=== PATIENT | female | born 1995 | race Caucasian/White ===

== ENCOUNTER 2017-12-29 22:18 | Emergency (ER) | payer SELFPAY ==
[~2017-12-29] VITALS: Ht 157.5 cm; Wt 56.7 kg
[~2017-12-29 22:18] MED LIST: ACET-2267 PO; PREN-53 PO
[2017-12-29] MEDS ORDERED: NS IV 1000 ML 1,000 ML IV SCH (22:23)
--- OUTSIDE RECORDS SUMMARY | 2017-12-29 22:23 | XMS REPORT | Continuity of Care Document ---
Author Author [facility] Address Unknown Phone Unavailable Allergies Active Description Code Type Severity Reaction Onset Reported/Identified Relationship to Patient Clinical Status Yes No Known Drug Allergies [id number] Drug Allergy Unknown N/A 01/01/2016 Medications There is no data. Problems Date Dx Coded Attending Type Code Diagnosis Diagnosed By 06/26/2014 ANABELA SAMAYOA APRN N V03.89 MENINGOCOCCAL DX 01/01/2016 REGISTAWANDA Leon WHEAT CLEANER Ot O99.611 DISEASES OF THE DGSTV SYS COMP 01/01/2016 REGIS, TAWANDA WHEAT CLEANER Ot R11.0 NAUSEA 01/01/2016 REGISTAWANDA Leon WHEAT CLEANER Ot Z3A.10 10 WEEKS GESTATION OF 01/02/2016 REGISTAWANDA Leon WHEAT CLEANER Ot O99.611 DISEASES OF THE DGSTV SYS COMP 01/02/2016 REGIS, TAWANDA WHEAT CLEANER Ot R11.0 NAUSEA 01/02/2016 REGISTAWANDA Leon WHEAT CLEANER Ot Z3A.10 10 WEEKS GESTATION OF 03/02/2016 KOURTNEY RUBIO MD Ot M54.5 LOW BACK PAIN 03/02/2016 KOURTNEY RUBIO MD Ot O26.892 OT RELATED CONDITIONS, SECOND 03/02/2016 KOURTNEY RUBIO MD Ot Z3A.21 21 WEEKS GESTATION OF 03/02/2016 KOURTNEY RUBIO MD Ot M54.5 LOW BACK PAIN 03/02/2016 KOURTNEY RUBIO MD Ot O26.892 OTH RELATED CONDITIONS, SECOND 03/02/2016 KOURTNEY RUBIO MD Ot Z3A.21 21 WEEKS GESTATION OF Procedures There is no data. Results Test Result Range Complete urinalysis with reflex to culture - 03/01/16 23:40 Urine color determination YELLOW NRG Urine clarity determination CLEAR NRG Urine pH measurement by test strip 7 5-9 Specific gravity of urine by test strip 1.015 1.016- 1.022 Urine protein assay by test strip, semi-quantitative NEGATIVE NEGATIVE Urine glucose detection by automated test strip NEGATIVE NEGATIVE Erythrocytes detection in urine sediment by light microscopy NEGATIVE NEGATIVE Urine ketones detection by automated test strip NEGATIVE NEGATIVE Urine nitrite detection by test strip NEGATIVE NEGATIVE Urine total bilirubin detection by test strip NEGATIVE NEGATIVE Urine urobilinogen measurement by automated test strip (mass/volume) NORMAL NORMAL Urine leukocyte esterase detection by dipstick NEGATIVE NEGATIVE Automated urine sediment erythrocyte count by microscopy (number/high power field) NONE NRG Automated urine sediment leukocyte count by microscopy (number/high power field ) NONE NRG Bacteria detection in urine sediment by light microscopy TRACE NRG Squamous epithelial cells detection in urine sediment by light microscopy 2-5 NRG Crystals detection in urine sediment by light microscopy PRESENT NRG Casts detection in urine sediment by light microscopy NONE NRG Mucus detection in urine sediment by light microscopy NEGATIVE NRG Complete urinalysis with reflex to culture NO NRG Amorphous sediment detection in urine sediment by light microscopy MOD ANDRZEJ PHOSPHATE NRG Encounters ACCT No. Visit Date/Time Discharge Status Pt. Type Provider Facility Loc./Unit Complaint [id number] 06/26/2014 15:07:00 06/26/2014 23:59:59 [facility] Outpatient ADDISON ANABELA GARCIA APRN N [id number] 03/01/2016 23:32:00 03/02/2016 00:44:00 DIS Emergency KOURTNEY RUBIO MD [facility] ER BACK PAIN,POSS KIDNEY PAIN,18 WKS PREG [id number] 01/01/2016 13:22:00 01/01/2016 15:37:00 DIS Emergency TAWANDA STACY [facility] ER FLU SYMPTOMS 10 WKS PREG
--- NOTE | 2017-12-29 22:29 | ED Abdominal Pain ---
General Chief Complaint: Abdominal/GI Problems Stated Complaint: ABD PAIN Source of Information: Patient, Spouse Exam Limitations: No Limitations History of Present Illness Date Seen by Provider: Dec 29, 2017 Time Seen by Provider: 22:20 Initial Comments The patient presents to the ER by private conveyance with her spouse with chief complaint that about half hour prior to arrival she was just sitting in her chair not doing anything strenuous and started having sharp 10 out of 10 cramp- like abdominal pain in her right upper quadrant and epigastric region. She has no history of abdominal trauma, surgeries or medical problems. She is not taking medicines or control. Her last mental. Was about 2-1/2 weeks ago. She is not having any painful urination and had a normal bowel movement earlier today. She ate last about 5:00 in the evening. As she's got here she is having much less pain and rates it about a 1 out of 10. Allergies and Home Medications Allergies Coded Allergies: No Known Drug Allergies (Unverified , 01/01/16) Home Medications [id number]/Iron Fumarate/FA/Dss 1 Each Tablet, 1 EACH PO DAILY, (Reported) Patient Home Medication List Home Medication List Reviewed: Yes Review of Systems Review of Systems Constitutional: No chills, No diaphoresis, No fever EENTM: No Blurred Vision, No Double Vision Respiratory: Denies Cough, Denies Shortness of Air, Denies SOA With Exertion Cardiovascular: Denies Chest Pain, Denies Lightheadedness Gastrointestinal: See HPI; Denies Abdomen Distended; Abdominal Pain; Denies Constipated, Denies Diarrhea; Nausea; Denies Vomiting Genitourinary: Denies Burning, Denies Discharge Musculoskeletal: No back pain, No joint pain Skin: No pruritus, No rash Psychiatric/Neurological: Denies Depressed, Denies Headache, Denies Numbness, Denies Paresthesia Past Fvnckij-Llkxmm-Ogbgze Hx Patient Social History Alcohol Use: Rarely Uses Recreational Drug Use: No Smoking Status: Former Smoker Type Used: Cigars Former Smoker, Quit: Nov 18, 2015 Recent Foreign Travel: No Contact w/Someone Who Travel: No Recent Hopitalizations: No Immunizations Up To Date Tetanus Booster (TDap): Unknown PED Vaccines UTD: Yes Date of Influenza Vaccine: Dec 30, 2015 Seasonal Allergies Seasonal Allergies: No Past Medical History Reproductive Disorders: No Adverse Reaction/Blood Tranf: No Physical Exam Vital Signs Vital Signs - First Documented 12/29/17 22:18 Temp 99.3 Pulse 85 Resp 18 B/P (MAP) 119/56 (77) Pulse Ox 100 O2 Delivery Room Air Capillary Refill : Height/Weight/BMI Height: 5'2" Weight: 145lbs. oz. 65.767775sf; 26.52 BMI Method:Stated General Appearance: WD/WN, mild distress HEENT: PERRL/EOMI, normal ENT inspection, TMs normal, pharynx normal Neck: non-tender, full range of motion, supple, normal inspection Respiratory: chest non-tender, lungs clear, normal breath sounds, no respiratory distress, no accessory muscle use Cardiovascular: normal peripheral pulses, regular rate, rhythm, no edema Peripheral Pulses: 2+ Radial Pulses (R), 2+ Radial Pulses (L) Gastrointestinal: normal bowel sounds, soft, tenderness (Mild epigastric and right upper quadrant tenderness without McBurney's point tenderness or Ramsay sign. No mesenteric signs.) Extremities: normal inspection, normal capillary refill Progress/Results/Core Measures Results/Orders Lab Results Laboratory Tests Test 12/29/17 22:20 12/29/17 22:32 Range/Units White Blood Count 12.5 H 4.3-11.0 10^3/uL Red Blood Count 4.23 L 4.35-5.85 10^6/uL Hemoglobin 12.6 11.5-16.0 G/DL Hematocrit 39 35-52 % Mean Corpuscular Volume 92 80-99 FL Mean Corpuscular Hemoglobin 30 25-34 PG Mean Corpuscular Hemoglobin Concent 32 32-36 G/DL Red Cell Distribution Width 12.7 10.0-14.5 % Platelet Count 271 130-400 10^3/uL Mean Platelet Volume 11.0 H 7.4-10.4 FL Neutrophils (%) (Auto) 34 L 42-75 % Lymphocytes (%) (Auto) 57 H 12-44 % Monocytes (%) (Auto) 7 0-12 % Eosinophils (%) (Auto) 1 0-10 % Basophils (%) (Auto) 1 0-10 % Neutrophils # (Auto) 4.3 1.8-7.8 X 10^3 Lymphocytes # (Auto) 7.2 H 1.0-4.0 X 10^3 Monocytes # (Auto) 0.9 0.0-1.0 X 10^3 Eosinophils # (Auto) 0.1 0.0-0.3 10^3/uL Basophils # (Auto) 0.1 0.0-0.1 10^3/uL Urine Test NEGATIVE NEGATIVE Sodium Level 138 135-145 MMOL/L Potassium Level 3.2 L 3.6-5.0 MMOL/L Chloride Level 107 98-107 MMOL/L Carbon Dioxide Level 17 L 21-32 MMOL/L Anion Gap 14 5-14 MMOL/L Blood Urea Nitrogen 12 7-18 MG/DL Creatinine 0.82 0.60-1.30 MG/DL Estimat Glomerular Filtration Rate > 60 BUN/Creatinine Ratio 15 Glucose Level 116 H 70-105 MG/DL Calcium Level 9.0 8.5-10.1 MG/DL Corrected Calcium 8.7 8.5-10.1 MG/DL Total Bilirubin 0.3 0.1-1.0 MG/DL Aspartate Amino Transf (AST/SGOT) 14 5-34 U/L Alanine Aminotransferase (ALT/SGPT) 8 0-55 U/L Alkaline Phosphatase 55 40-136 U/L C-Reactive Protein High Sensitivity 0.05 0.00-0.50 MG/DL Total Protein 6.5 6.4-8.2 GM/DL Albumin 4.4 3.2-4.5 GM/DL Lipase 20 8-78 U/L Urine Color YELLOW Urine Clarity CLEAR Urine pH 6 5-9 Urine Specific [place] 1.015 L 1.016-1.022 Urine Protein NEGATIVE NEGATIVE Urine Glucose (UA) NEGATIVE NEGATIVE Urine Ketones NEGATIVE NEGATIVE Urine Nitrite NEGATIVE NEGATIVE Urine Bilirubin NEGATIVE NEGATIVE Urine Urobilinogen NORMAL NORMAL MG/DL Urine Leukocyte Esterase 1+ H NEGATIVE Urine RBC (Auto) NEGATIVE NEGATIVE Urine RBC NONE /HPF Urine WBC 10-25 H /HPF Urine Squamous Epithelial Cells 10-25 H /HPF Urine Crystals NONE /LPF Urine Bacteria MODERATE H /HPF Urine Casts NONE /LPF Urine Mucus NEGATIVE /LPF Urine Culture Indicated YES Urine Opiates Screen NEGATIVE NEGATIVE Urine Oxycodone Screen NEGATIVE NEGATIVE Urine Methadone Screen NEGATIVE NEGATIVE Urine Propoxyphene Screen NEGATIVE NEGATIVE Urine Barbiturates Screen NEGATIVE NEGATIVE Ur Tricyclic Antidepressants Screen NEGATIVE NEGATIVE Urine Phencyclidine Screen NEGATIVE NEGATIVE Urine Amphetamines Screen NEGATIVE NEGATIVE Urine Methamphetamines Screen NEGATIVE NEGATIVE Urine Benzodiazepines Screen NEGATIVE NEGATIVE Urine Cocaine Screen NEGATIVE NEGATIVE Urine Cannabinoids Screen POSITIVE H NEGATIVE My Orders Orders - SYEDA,ALYSSIA J Cbc With Automated Diff (12/29/17 22:23) Comprehensive Metabolic Panel (12/29/17 22:23) Hs C Reactive Protein (12/29/17 22:23) Drug Screen Stat (Urine) (12/29/17 22:23) Lipase (12/29/17 22:23) Ua Culture If Indicated (12/29/17 22:23) Saline Lock/Iv-Start (12/29/17 22:23) Ns Iv 1000 Ml (Sodium Chloride 0.9%) (12/29/17 22:23) Ct Abdomen/Pelvis W (12/29/17 22:23) Urine Culture (12/29/17 22:32) Hcg,Qualitative Urine (12/29/17 22:47) Iohexol Injection (Omnipaque 350 Mg/Ml 1 (12/30/17 00:00) Ns (Ivpb) (Sodium Chloride 0.9%) (12/30/17 00:00) Neis Harris Dna Urine Test (12/30/17 00:40) Chlam Dna Probe (12/30/17 00:40) Ceftriaxone For Im Use (Rocephin For Im (12/30/17 00:45) Azithromycin Tablet (Zithromax Tablet) (12/30/17 00:45) Ceftriaxone For Iv Use (Rocephin For I (12/30/17 00:47) Medications Given in ED Current Medications Medications Dose Ordered Sig/Micheal Route Start Time Stop Time Status Last Admin Dose Admin Iohexol 100 ml ONCE ONCE IV 12/30/17 00:00 12/30/17 00:01 DC 12/29/17 23:57 100 ML Sodium Chloride 250 ml ONCE ONCE IV 12/30/17 00:00 12/30/17 00:01 DC 12/29/17 23:57 80 ML Vital Signs/I&O 12/29/17 22:18 Temp 99.3 Pulse 85 Resp 18 B/P (MAP) 119/56 (77) Pulse Ox 100 O2 Delivery Room Air 12/30/17 00:00 Intake Total 1000 ml Balance 1000 ml Progress Progress Note #1: Time: 22:29 Progress Note She is now declining anything for pain or nausea. We'll give her a liter fluids and get some labs and see if we need to do a CT of her abdomen and pelvis. Colicky cramping abdominal pain could be consistent with gallbladder. Came about 3 or 4 hours after eating. Progress Note #2: Time: 00:50 Progress Note Discussed some white blood cells in the urine but there is also some contamination with squames. It's possible pelvic inflammatory disease. She states she is in a monogamous relationship last couple years. Plan to go ahead and treat her with Rocephin and azithromycin and have her follow-up with a primary care provider in the next 1-2 weeks. Diagnostic Imaging Diagonstic Imaging: CT (C/Contrast) Plain Films/CT/US/NM/MRI: abdomen, pelvis Comments Contracted gallbladder. No radiopaque cholelithiasis or acute acute cholecystitis. Moderate colonic stool air which may be an ileus versus constipation. No mechanical bowel obstruction. Pelvic stranding correlate clinically for PID Or cystitis. Reviewed: Reviewed Night Hawk Study (stat rad), Reviewed by Me Departure Impression Primary Impression: PID (acute pelvic inflammatory disease) Disposition: HOME, SELF-CARE Condition: Stable Departure-Patient Inst. Decision time for Depature: 00:51 Referrals: NO,LOCAL PHYSICIAN (PCP/Family) Primary Care Physician Patient Instructions: LOCAL PHYSICIAN LIST, Pelvic Inflammatory Disease (DC) Add. Discharge Instructions: We'll have the results from the send out tests within the next 5 days and if they change her therapy we'll call you. You've received the antibiotics tonight and that should start having improvement by day 3. If not he should follow-up with your doctor sooner otherwise plan to establish care and follow-up with a primary care doctor or ROLLER DIE CUTTING MACHINE OPERATOR within the next 1-2 weeks. Consider getting up to date on your Pap smears. All discharge instructions reviewed with patient and/or family. Voiced understanding. ALYSSIA LANDA Dec 29, 2017 22:29
[2017-12-29 22:30] LABS: BASOPHILS # (AUTO) 0.1 10^3/uL (0.0-0.1); BASOPHILS % (AUTO) 1 % (0-10); EOSINOPHILS # (AUTO) 0.1 10^3/uL (0.0-0.3); EOSINOPHILS % (AUTO) 1 % (0-10); HEMATOCRIT 39 % (35-52); HEMOGLOBIN 12.6 G/DL (11.5-16.0); LYMPHOCYTES # (AUTO) 7.2 X 10^3 (1.0-4.0); LYMPHOCYTES % (AUTO) 57 % (12-44); MEAN CORPUSCULAR HEMOGLOBIN 30 PG (25-34); MEAN CORPUSCULAR HGB CONC 32 G/DL (32-36); MEAN CORPUSCULAR VOLUME 92 FL (80-99); MONOCYTES # (AUTO) 0.9 X 10^3 (0.0-1.0); MONOCYTES % (AUTO) 7 % (0-12); NEUTROPHILS # (AUTO) 4.3 X 10^3 (1.8-7.8); NEUTROPHILS % (AUTO) 34 % (42-75); PLATELET COUNT 271 10^3/uL (130-400); RED BLOOD COUNT 4.23 10^6/uL (4.35-5.85); RED CELL DISTRIBUTION WIDTH 12.7 % (10.0-14.5); WHITE BLOOD COUNT 12.5 10^3/uL (4.3-11.0)
[2017-12-29 22:38] LABS: BILIRUBIN,URINE NEGATIVE (NEGATIVE); CLARITY,URINE CLEAR; COLOR,URINE YELLOW; GLUCOSE, URINE (UA) NEGATIVE (NEGATIVE); KETONES,URINE NEGATIVE (NEGATIVE); LEUKOCYTE ESTERASE ,URINE 1+ (NEGATIVE); NITRITE,URINE NEGATIVE (NEGATIVE); PH,URINE 6 (5-9); PROTEIN,URINE NEGATIVE (NEGATIVE); UROBILINOGEN,URINE NORMAL (NORMAL)
[2017-12-29 22:46] LABS: BACTERIA,URINE MODERATE /HPF
[2017-12-29 22:49] LABS: AMPHETAMINE SCREEN, URINE NEGATIVE (NEGATIVE); BARBITURATE SCREEN URINE NEGATIVE (NEGATIVE); BENZODIAZEPINES SCREEN URINE NEGATIVE (NEGATIVE); CANNABINOID SCREEN, URINE POSITIVE (NEGATIVE); COCAINE SCREEN URINE NEGATIVE (NEGATIVE); METHADONE STAT NEGATIVE (NEGATIVE); METHAMPHETAMINE SCREEN URINE S NEGATIVE (NEGATIVE); OPIATE SCREEN URINE NEGATIVE (NEGATIVE); OXYCODONE STAT NEGATIVE (NEGATIVE); PROPOXYPHENE STAT NEGATIVE (NEGATIVE); TRICYCLIC ANTIDEPRESSANTS SCRE NEGATIVE (NEGATIVE)
[2017-12-29 22:49] LABS: ALANINE AMINOTRANSFERASE 8 U/L (0-55); ALBUMIN 4.4 GM/DL (3.2-4.5); ALKALINE PHOSPHATASE 55 U/L (40-136); BILIRUBIN,TOTAL 0.3 MG/DL (0.1-1.0); BUN/CREATININE RATIO 15; CARBON DIOXIDE 17 MMOL/L (21-32); CHLORIDE 107 MMOL/L (98-107); CREATININE SERUM 0.82 MG/DL (0.60-1.30); GFR ESTIMATED > 60; GLUCOSE 116 MG/DL (70-105); LIPASE 20 U/L (8-78); POTASSIUM 3.2 MMOL/L (3.6-5.0); SODIUM 138 MMOL/L (135-145); TOTAL PROTEIN 6.5 GM/DL (6.4-8.2)
[2017-12-30] MEDS ORDERED: NS 250 ML (IVPB) BAG IV ONE
[2017-12-30] MEDS ORDERED: IOHEXOL 350 MG/ML 100 ML (OMNIPAQUE 350) VIAL IV ONE
[2017-12-30] MEDS ORDERED: cefTRIAXone 250 MG/ML vial (IM ONLY) IM ONE (00:45)
[2017-12-30] MEDS ORDERED: AZITHROMYCIN 250 MG TAB (ZITHROMAX) PO ONE (00:45)
[2017-12-30] MEDS ORDERED: cefTRIAXone FOR IV USE 250 MG in SYRINGE-IVPB 1 SYRINGE IV STA (00:47)
[2017-12-30] MEDS ORDERED: cefTRIAXone 1 GM/10 ML for IV (ROCEPHIN) ONE (01:18)
[2017-12-30 02:02] VITALS: BP 107/60
--- NOTE | 2017-12-30 06:33 | Diagnostic Imaging Report ---
PROCEDURE: CT abdomen and pelvis with contrast. TECHNIQUE: Multiple contiguous axial images were obtained through the abdomen and pelvis after administration of intravenous contrast. INDICATION: Right upper quadrant pain. COMPARISON: None FINDINGS: There is mild atelectasis in the lung bases. The heart is normal in size. The liver demonstrates no focal lesions. The spleen appears normal, with no lesions seen. The pancreas is unremarkable. The adrenal glands appear normal. There are no obstructing renal calculi. There appears to be a nonobstructing calculus in the inferior right kidney measuring approximately 3 mm. There is moderate stool in the colon. The appendix appears normal (image 34, series 5). There is a small amount of fluid in the pelvis. No free air is seen. There are Schmorl's nodes in the thoracic spine, greater than expected for age. IMPRESSION: 1. Small amount of nonspecific fluid in the pelvis. No evidence of appendicitis. 2. Moderate stool in the colon. No evidence of bowel obstruction. Dictated by: Dictated on workstation # [id number]
== END 2017-12-30 02:02 | disposition home or self-care (01) ==
LOC: EDUNIT# 22:18 → ER 22:19
DX: N73.9 Female pelvic inflammatory disease, unspecified (principal); Z87.891 Personal history of nicotine dependence
CPT/HCPCS: 36415; 74177; 80053; 80306; 81000; 83690; 84703; 85025; 86141; 87077; 87088; 87186; 87491; 87591; 96361; 96374

== ENCOUNTER → 2018-09-19 | Outpatient (CLI) | payer MEDICAID ==
[~2018-09-19] MED LIST changes: +CEPH-507 PO
--- NOTE | 2018-09-19 13:02 | Diagnostic Imaging Report ---
INDICATION: survey. TECHNIQUE: Multiple real-time grayscale images were obtained over the gravid uterus. COMPARISON: None. FINDINGS: There is a single live fetus in a cephalic presentation. heart rate was recorded at 150 beats per minute. Placenta is anterior. Amniotic fluid volume is normal. survey demonstrates kidneys, bladder, and stomach to be unremarkable. brain is unremarkable. There is a four-chamber heart. There is a three-vessel cord with normal insertion. spine is unremarkable. Cervical length is 4.8 cm. Biometrical measurements are as follows: Biparietal 4.99 cm, age 21 weeks 1 days. Head circumference 18.9 cm, age 21 weeks 2 days. Abdominal circumference 15.5 cm, age 20 weeks 5 days. Femur length 3.6 cm, age 21 weeks 4 days. Sonographic estimate age: 21 weeks 2 days. Sonographic estimated date of delivery: 01/28/19. Estimated Weight: 395 gm (+/- 58 gm). LMP percentile: 71%. heart rate: 150 beats per minute. number: 1 of 1. IMPRESSION: Single live IUP at 21 weeks 2 days gestational age. Estimated date of confinement sonographically is 01/28/2019. Dictated by: Dictated on workstation # [id number]
== END ==
LOC: RAD 10:07
PROVIDERS: ATTEND Obstetrics & Gynecology
DX: Z36.89 Encounter for other specified antenatal screening (principal); Z3A.21 21 weeks gestation of pregnancy
CPT/HCPCS: 76805

== ENCOUNTER 2019-01-19 08:46 | Inpatient (IN) | payer MEDICAID ==
[~2019-01-19] VITALS: Ht 157.5 cm; Wt 69.9 kg
[2019-01-19] VITALS (61 sets, daily range): BP systolic 59–128; BP diastolic 52–88
--- NOTE | 2019-01-19 08:35 | NUR ---
ODETTE KOHLER presented to unit via ambulatory from ED, accompanied by so, with c/o SPONTANEOUS RUPTURE OF MEMBRANES. ODETTE KOHLER weighed, gowned, voided, and to bed. EFHM and TOCO applied, VS taken. ODETTE KOHLER oriented to bed controls, call light, TV, heat, and A/C controls.
--- NOTE | 2019-01-19 08:52 | NUR ---
Called Dr. Reno with admission report on pt. discussed sve, srom, and gbs status. admission orders obtained.
[2019-01-19] MEDS ORDERED: D5 LR IV SOLUTION 1,000 ML IV SCH (09:11)
[2019-01-19] MEDS ORDERED: MINERAL OIL CONCENTRATE 99.9% 15 ML UDC TOP PRN (09:15)
--- NOTE | 2019-01-19 10:11 | NUR ---
#20g IV x1 attempt by this RN. admission labs collected, labeled and sent to lab. pt tolerated well. D5LR infusing @ 125cc/hr via IV pump.
[2019-01-19] MEDS: D5 LR IV SOLUTION 1,000 ML IV SCH (10:20)
[2019-01-19 10:30] LABS: BILIRUBIN,URINE NEGATIVE (NEGATIVE); CLARITY,URINE SL CLOUDY; COLOR,URINE YELLOW; GLUCOSE, URINE (UA) NEGATIVE (NEGATIVE); KETONES,URINE NEGATIVE (NEGATIVE); LEUKOCYTE ESTERASE ,URINE 1+ (NEGATIVE); NITRITE,URINE NEGATIVE (NEGATIVE); PROTEIN,URINE NEGATIVE (NEGATIVE)
[2019-01-19 10:31] LABS: BASOPHILS % (AUTO) 0 % (0-10); EOSINOPHILS # (AUTO) 0.1 10^3/uL (0.0-0.3); EOSINOPHILS % (AUTO) 0 % (0-10); HEMATOCRIT 36 % (35-52); HEMOGLOBIN 11.7 G/DL (11.5-16.0); LYMPHOCYTES # (AUTO) 2.5 X 10^3 (1.0-4.0); LYMPHOCYTES % (AUTO) 18 % (12-44); MEAN CORPUSCULAR HEMOGLOBIN 31 PG (25-34); MEAN CORPUSCULAR HGB CONC 32 G/DL (32-36); MEAN CORPUSCULAR VOLUME 95 FL (80-99); MEAN PLATELET VOLUME 10.9 FL (7.4-10.4); MONOCYTES % (AUTO) 7 % (0-12); NEUTROPHILS # (AUTO) 10.4 X 10^3 (1.8-7.8); NEUTROPHILS % (AUTO) 75 % (42-75); PLATELET COUNT 261 10^3/uL (130-400); RED CELL DISTRIBUTION WIDTH 13.6 % (10.0-14.5); WHITE BLOOD COUNT 13.9 10^3/uL (4.3-11.0)
[2019-01-19 10:41] LABS: BACTERIA,URINE TRACE /HPF
--- NOTE | 2019-01-19 11:14 | NUR ---
called. update given on pt's status. reviewed monitor tracing. new order received to start pitocin.
[2019-01-19] MEDS ORDERED: OXYTOCIN/NORMAL SALINE 500 ML IV SCH (11:16)
[2019-01-19] MEDS ORDERED: OXYTOCIN/NORMAL SALINE 500 ML IV ONE (11:18)
--- NOTE | 2019-01-19 12:08 | History & Physical-OB ---
OB - Chief Complaint & HPI Date/Time Date of Admission: Date of Admission: Jan 19, 2019 at 09:10 Date seen by a Provider: Jan 19, 2019 Time Seen by a Provider: 13:30 Chief Complaint/History OB-Reason for Admission/Chief: Onset of Labor Hx : 2 Expected Date of Delivery: Feb 02, 2019 Gestational Age in Weeks: 38 Gestational Age in Days: 0 History of Labs A pos Antibody neg RI RPR NR HBsAg NR GC neg HIV NR GBS neg Allergies and Home Medications Allergies Coded Allergies: No Known Drug Allergies (Unverified , 01/01/16) Home Medications Cephalexin 500 Mg Capsule, 500 MG PO TID, (Reported) [id number]/Iron Fumarate/FA/Dss 1 Each Tablet, 1 EACH PO DAILY, (Reported) Patient Home Medication List Home Medication List Reviewed: Yes OB - History Hx of Present Care: Yes Ultrasounds: Normal mid trimester US Obstetrical Complications: None Medical Complications: None Delivery History Hx Blood Disorders: No Adverse Rxn to Tranfusion: No Patient Past Medical History n/a Social History/Family History HIV/AIDS: No Sexually Transmitted Disease: No Alcohol Use: Denies Use Recreational Drug Use: No 2nd Hand Smoke Exposure: No Immunizations Tetanus Booster (TDap): Unknown Date of Influenza Vaccine: Dec 21, 2018 OB - Admission Exam Physical Exam Vitals: Vital Signs 01/19/19 11:20 Temp 36.3 Pulse 67 Resp 18 B/P (MAP) 112/57 (75) O2 Delivery Room Air HEENT: NCAT Heart: Rhythm Normal Abdomen: Gravid Extremities: Normal Reflexes: Normal Cervical Dilatation: 2cm Effacement: 75% Station: -1 Membranes: Ruptured Amniotic Fluid: Clear Heart Rate: 130's Accelerations: Accelerations Present Decelerations: No Decelerations Short Term Variability: Present Correction Variability: Average (6-25) Contractions on Admission: 6-10 Minutes Apart Labs Laboratory Tests Test 01/19/19 10:20 Range/Units White Blood Count 13.9 H 4.3-11.0 10^3/uL Red Blood Count 3.82 L 4.35-5.85 10^6/uL Hemoglobin 11.7 11.5-16.0 G/DL Hematocrit 36 35-52 % Mean Corpuscular Volume 95 80-99 FL Mean Corpuscular Hemoglobin 31 25-34 PG Mean Corpuscular Hemoglobin Concent 32 32-36 G/DL Red Cell Distribution Width 13.6 10.0-14.5 % Platelet Count 261 130-400 10^3/uL Mean Platelet Volume 10.9 H 7.4-10.4 FL Neutrophils (%) (Auto) 75 42-75 % Lymphocytes (%) (Auto) 18 12-44 % Monocytes (%) (Auto) 7 0-12 % Eosinophils (%) (Auto) 0 0-10 % Basophils (%) (Auto) 0 0-10 % Neutrophils # (Auto) 10.4 H 1.8-7.8 X 10^3 Lymphocytes # (Auto) 2.5 1.0-4.0 X 10^3 Monocytes # (Auto) 1.0 0.0-1.0 X 10^3 Eosinophils # (Auto) 0.1 0.0-0.3 10^3/uL Basophils # (Auto) 0.0 0.0-0.1 10^3/uL Urine Color YELLOW Urine Clarity SL CLOUDY Urine pH 7.0 5-9 Urine Specific [place] 1.010 L 1.016-1.022 Urine Protein NEGATIVE NEGATIVE Urine Glucose (UA) NEGATIVE NEGATIVE Urine Ketones NEGATIVE NEGATIVE Urine Nitrite NEGATIVE NEGATIVE Urine Bilirubin NEGATIVE NEGATIVE Urine Urobilinogen 0.2 < = 1.0 MG/DL Urine Leukocyte Esterase 1+ H NEGATIVE Urine RBC (Auto) NEGATIVE NEGATIVE Urine RBC NONE /HPF Urine WBC 5-10 H /HPF Urine Squamous Epithelial Cells 2-5 /HPF Urine Crystals NONE /LPF Urine Bacteria TRACE /HPF Urine Casts NONE /LPF Urine Mucus NEGATIVE /LPF Urine Culture Indicated YES OB - Assessment/Plan/Diagnosis Assessment Assessment: active labor, rupture of membranes Admission Dx 23 yo @ 38 weeks SROM Active labar GBS neg Admission Status: Inpatient Order (span 2 midnights) Reason for Inpatient Admission: Active labor at term Plan Plan: Expectant Management (Pitocin augmentation if necessary) JOSE SOL DO Jan 19, 2019 12:08 POS
--- NOTE | 2019-01-19 13:20 | NUR ---
called to check on pt's status. update given.
[2019-01-19] MEDS ORDERED: CATHETER FLUSH 10 ML SYR IV SCH (14:00)
--- NOTE | 2019-01-19 15:26 | NUR ---
Rowdy Guillen called to check on pt. update given.
[2019-01-19] MEDS ORDERED: SUFENTA 0.6MCG/ML BUPIVA 0.125 100 ML ONE (19:37)
[2019-01-19] MEDS ORDERED: BUPIVACAINE 0.25% 30 ML (SENSORCAINE) VIAL ONE (19:53)
[2019-01-19] MEDS ORDERED: LIDOCAINE PF 2% 5 ML (XYLOCAINE) VIAL ONE (19:53)
[2019-01-19] MEDS ORDERED: fentaNYL INJECTION 100 MCG/2 ML AMP ONE (19:54)
--- NOTE | 2019-01-19 20:17 | NUR ---
Shira Gomez CRNA and ALEXSANDER Erickson here for epidural placement. Procedure explained, consent reviewed and signed by anesthesia. Questions answered to patient's satisfaction. Time out taken to verify correct patient/procedure. Patient up to side of bed, assisted into sitting position. Betadine prep done x3 and sterile drape applied. Local done, see anesthesia record. Test dose given, see anesthesia record for drug and dosage. Epidural catheter secured in place. Epidural placement complete. Assisted back into bed, monitors adjusted. Epidural dosed, see anesthesia record. Epidural of Sufenta/Bupvicaine @12cc/hr started per pump. Patient tolerated procedure well.
[2019-01-19] MEDS: EPIDURAL (SUFENTA 0.6MCG/ML BUPIVA 0.125%) 100 ML BAG EPI SCH (20:34)
[2019-01-19] MEDS ORDERED: LACTATED RINGERS 1,000 ML IV ONE (21:08)
[2019-01-19] MEDS ORDERED: NALOXONE 0.4 MG/ML 1 ML (NARCAN) VIAL IV PRN (21:15)
[2019-01-19] MEDS ORDERED: CATHETER FLUSH 10 ML SYR IV PRN (21:15)
[2019-01-19] MEDS: CATHETER FLUSH 10 ML SYR IV SCH (22:00)
[2019-01-19] MEDS ORDERED: ONDANSETRON 4 MG/2 ML (SDV) Z0FRAN IVP PRN (23:15)
[2019-01-20] VITALS (37 sets, daily range): BP systolic 96–158; BP diastolic 52–83
[2019-01-20] MEDS: D5 LR IV SOLUTION 1,000 ML IV SCH (01:18)
[2019-01-20] MEDS: EPIDURAL (SUFENTA 0.6MCG/ML BUPIVA 0.125%) 100 ML BAG EPI SCH (05:09)
[2019-01-20] MEDS: CATHETER FLUSH 10 ML SYR IV SCH (06:00)
[2019-01-20] MEDS ORDERED: LIDOCAINE/EPI 2% 1:200,00 (XYLOCAINE) 10 ML VIAL ONE (06:35)
[2019-01-20] MEDS ORDERED: OXYTOCIN/NORMAL SALINE 500 ML IV SCH (07:11)
[2019-01-20] MEDS ORDERED: MEASLES,MUMPS,RUBELLA 1 EA INJ SQ ONE (07:15)
[2019-01-20] MEDS ORDERED: WITCH HAZEL(TUCKS) 40 EA JAR TOP PRN (07:15)
[2019-01-20] MEDS ORDERED: BENZOCAINE/MENTHOL (DERMOPLAST) 56 ML CAN TP PRN (07:15)
[2019-01-20] MEDS ORDERED: TETANUS,DIPTH,PERTUSS P/F (BOOSTRIX) 0.5 ML VIAL IM ONE (07:15)
[2019-01-20] MEDS ORDERED: DIBUCAINE (NUPERCAINAL) 1% OINT 30 GM TOP PRN (07:15)
--- NOTE | 2019-01-20 07:17 | OB Labor & Delivery Record ---
L&D History Date of Service Date of Service: Jan 20, 2019 History Expected Date of Delivery: Feb 02, 2019 Gestational Age in Weeks: 38 Hx : 2 Complications Events: Routine care Operative Indications (Cesarea: N/A-Vaginal Delivery Intrapartal Events: None L&D Stage1 Stage One Onset of Labor - Date: Jan 20, 2019 Monitors and Tracing Monitor Mode: External Heart Rate: 130 Monitor Accelerations: Uniform Monitor Decelerations: None Station: -1 Environmental Property Assessor Variability: Average (6-10) Short Term Variability: Present Presentation: Vertex Vital Signs VS - Last 72 Hours, by Label POS 01/19/19 01/19/19 01/19/19 01/19/19 08:50 09:20 09:50 10:20 Pulse 83 82 82 65 Resp 18 18 18 18 B/P (MAP) 117/56 (76) 106/58 (74) 88/62 (71) 105/59 (74) O2 Delivery Room Air Room Air Room Air Room Air 01/19/19 01/19/19 01/19/19 01/19/19 10:50 11:20 11:40 11:55 Temp 36.3 Pulse 71 67 75 74 Resp 18 18 18 18 B/P (MAP) 113/60 (77) 112/57 (75) 116/67 (83) 113/64 (80) Pulse Ox 99 O2 Delivery Room Air Room Air Room Air Room Air 01/19/19 01/19/19 01/19/19 01/19/19 12:10 12:25 12:40 12:55 Temp 36.6 Pulse 73 74 74 83 Resp 18 18 18 18 B/P (MAP) 114/66 (82) 114/64 (81) 114/64 (81) 95/52 (66) O2 Delivery Room Air Room Air Room Air Room Air 01/19/19 01/19/19 01/19/19 01/19/19 13:10 13:25 13:40 14:00 Pulse 70 63 76 Resp 18 18 18 18 B/P (MAP) 104/59 (74) 110/55 (73) 116/67 (83) O2 Delivery Room Air Room Air Room Air Room Air 01/19/19 01/19/19 01/19/19 01/19/19 14:15 14:30 14:45 15:00 Pulse 66 68 64 67 Resp 18 18 18 18 B/P (MAP) 107/57 (74) 112/63 (79) 108/56 (73) 107/60 (76) O2 Delivery Room Air Room Air Room Air Room Air 01/19/19 01/19/19 01/19/19 01/19/19 15:15 15:30 15:45 16:00 Pulse 71 76 70 65 Resp 18 18 18 18 B/P (MAP) 107/59 (75) 114/72 (86) 116/64 (81) 104/56 (72) O2 Delivery Room Air Room Air Room Air Room Air 01/19/19 01/19/19 01/19/19 01/19/19 16:15 16:30 16:45 17:00 Temp 36.6 Pulse 65 65 78 78 Resp 18 18 18 18 B/P (MAP) 108/59 (75) 108/62 (77) 115/60 (78) 115/60 (78) O2 Delivery Room Air Room Air Room Air Room Air 01/19/19 01/19/19 01/19/19 01/19/19 17:15 17:30 17:45 18:00 Pulse 116 115 70 75 Resp 18 18 18 18 B/P (MAP) 128/88 (101) 121/69 (86) 105/74 (84) 111/67 (82) O2 Delivery Room Air Room Air Room Air Room Air 01/19/19 01/19/19 01/19/19 01/19/19 18:15 18:30 18:45 19:00 Temp 36.8 Pulse 77 84 84 71 Resp 18 18 18 18 B/P (MAP) 114/58 (76) 127/59 (81) 127/59 (81) 109/59 (76) O2 Delivery Room Air Room Air Room Air Room Air 01/19/19 01/19/19 01/19/19 01/19/19 19:15 19:30 19:45 20:00 Temp 36.6 Pulse 70 68 69 88 Resp 18 18 18 18 B/P (MAP) 111/65 (80) 118/55 (76) 117/60 (79) 127/67 (87) Pulse Ox 100 O2 Delivery Room Air Room Air Room Air Room Air 01/19/19 01/19/19 01/19/19 01/19/19 20:20 20:25 20:30 20:35 Pulse 79 78 68 71 Resp 18 18 18 18 B/P (MAP) 109/55 (73) 108/54 (72) 101/56 (71) 110/53 (72) Pulse Ox 99 99 98 100 O2 Delivery Room Air Room Air Room Air Room Air 01/19/19 01/19/19 01/19/19 01/19/19 20:38 20:41 20:45 20:48 Pulse 70 70 74 74 Resp 18 18 18 18 B/P (MAP) 105/59 (74) 103/55 (71) 104/54 (71) 107/58 (74) Pulse Ox 100 100 99 99 O2 Delivery Room Air Room Air Room Air Room Air 01/19/19 01/19/19 01/19/19 01/19/19 20:53 20:58 21:03 21:15 Pulse 78 77 65 66 Resp 18 18 18 18 B/P (MAP) 109/56 (73) 103/56 (72) 106/57 (73) 101/56 (71) Pulse Ox 99 99 99 100 O2 Delivery Room Air Room Air Room Air Room Air 01/19/19 01/19/19 01/19/19 01/19/19 21:35 21:50 22:05 22:15 Pulse 65 70 71 69 Resp 18 18 18 18 B/P (MAP) 111/54 (73) 105/56 (72) 97/53 (68) 105/55 (72) Pulse Ox 99 98 98 99 O2 Delivery Room Air Room Air Room Air Room Air 01/19/19 01/19/19 01/19/19 01/19/19 22:30 22:45 23:00 23:15 Temp 36.5 Pulse 69 66 77 78 Resp 18 18 18 18 B/P (MAP) 106/58 (74) 108/63 (78) 113/66 (82) 116/58 (77) Pulse Ox 99 99 100 100 O2 Delivery Room Air Room Air Room Air Room Air 01/19/19 01/19/19 01/20/19 01/20/19 23:30 23:45 00:00 00:20 Temp 36.6 Pulse 71 71 72 76 Resp 18 18 16 16 B/P (MAP) 103/56 (72) 115/58 (77) 107/53 (71) 109/53 (71) Pulse Ox 97 99 97 99 O2 Delivery Room Air Room Air Room Air Room Air 01/20/19 01/20/19 01/20/19 01/20/19 00:30 00:45 01:00 01:15 Temp 36.4 Pulse 71 71 87 82 Resp 16 16 16 16 B/P (MAP) 103/53 (70) 108/56 (73) 116/63 (80) 116/58 (77) Pulse Ox 98 100 98 100 O2 Delivery Room Air Room Air Room Air Room Air 01/20/19 01/20/19 01/20/19 01/20/19 01:30 01:50 02:05 02:20 Pulse 79 75 76 77 Resp 16 16 16 B/P (MAP) 107/59 (75) 105/55 (72) 99/52 (68) 101/54 (70) Pulse Ox 100 98 97 97 O2 Delivery Room Air Room Air Room Air Room Air 01/20/19 01/20/19 01/20/19 01/20/19 02:35 02:50 03:05 03:20 Pulse 74 76 85 80 Resp 16 16 16 16 B/P (MAP) 104/52 (69) 105/55 (72) 99/58 (72) 107/56 (73) Pulse Ox 97 97 98 99 O2 Delivery Room Air Room Air Room Air Room Air 01/20/19 01/20/19 01/20/19 01/20/19 03:35 03:50 04:05 04:20 Temp 36.5 36.7 Pulse 90 76 74 78 Resp 16 16 16 16 B/P (MAP) 112/57 (75) 105/59 (74) 115/59 (77) 116/60 (78) Pulse Ox 99 100 92 98 O2 Delivery Room Air Room Air Room Air Room Air 01/20/19 01/20/19 01/20/19 04:35 04:50 05:05 Pulse 78 79 83 Resp 16 16 16 B/P (MAP) 113/60 (77) 118/60 (79) 96/65 (75) Pulse Ox 99 98 99 O2 Delivery Room Air Room Air Room Air Rupture of Membranes Spontaneous Ruture of Membrane: Yes Amniotic Membrane Rupture Time: 0700 Amniotic Membrane Fluid Desc.: Clear Vaginal Bleeding Description: Normal Show Induction/Anesthesia Epidural Cath Placement - Time: 2023 Progress/Notes Patient admitted yesterday morning with SROM. Reported 0700, and came to [facility]. She was augmented with pitocin shortly after admission due to dysfunction contraction pattern. After 12 hrs of labor and pitocin augmentation the patient requested an epidural and was found to be 3-4 cm, she progressed overnight with continued augmentation to complete and +2 station. L&D Stage2 Stage Two Stage II Date: Jan 20, 2019 Monitors and Tracing Monitor Mode: External Heart Rate: 130 Monitor Accelerations: Uniform Monitor Decelerations: Variable Environmental Property Assessor Variability: Average (6-10) Short Term Variability: Present Position: Right Occiput Anterior Presentation: Vertex Cord Descript/Complications Cord Vessel Description: 3 Vessels Delivery Type Anterior Shoulder: Left Episiotomy/Perineal Laceration Laceraction(s)/Extensions: Yes Location Modifier: Left (left labial laceration) Degree (describe repair) repaired using 3-0 rapide suture Condition of Delivery 1 minute Comment: 8 5 minute Comment: 9 Notes live female weight 7lbs 4 oz Condition of Condition of Infant: Living Exam: No Observed Abnormalities Resuscitation Resuscitation: N/A - Spontaneous Resp L&D Stage3 Stage Three Stage III Date: Jan 20, 2019 Pictocin Pitocin Administration mu/min: 18 Pitocin ml/hr: 18 Pitocin Administration Comment: Wide open at delivery of placenta Placenta Delivery Placenta Delivery: Spontaneous Delivery Summary Summary Estimated blood loss (mL): 250 Attending at delivery: Jose Sol DO Condition of Delivery Examined: Cervix Examined, Uterus Explored Post Hemorrhage: No Condition of Mother stable Condition of (s) stable JOSE SOL DO Jan 20, 2019 7:16 am POS
[2019-01-20] MEDS ORDERED: DIBU30OI TOP (07:18)
[2019-01-20] MEDS ORDERED: IBUP-844 PO (07:18)
[2019-01-20] MEDS ORDERED: ACHD5005 PO (07:18)
[2019-01-20] MEDS ORDERED: FERR325T18 PO (07:18)
[2019-01-20] MEDS ORDERED: Benzocaine/Menthol TP (07:18)
[2019-01-20] MEDS ORDERED: DOCU100C37 PO (07:18)
--- NOTE | 2019-01-20 07:19 | Discharge Inst-Women's Service ---
Discharge Inst-Women's Serv Depart Medication/Instructions New, Converted or Re-Newed RX: RX on Chart Final Diagnosis PPD 1 NVD Problems Reviewed?: Yes Consults/Follow Up Additional Follow Up: Yes Orders/Referrals Dr. Sol in 6 weeks Activity Activity: Activity as Tolerated Driving Instructions: No Driving for 1 Week NO SMOKING: NO SMOKING Nothing Inside Vagina: No Douching, No [place], No Tampons Diet Discharge Diet: No Restrictions Symptoms to Report to : Bleeding Excessive, Pain Increased, Fever Over 101 Degrees F, Vaginal Bleeding Increase, Questions/Concerns For Any Problems or Questions: Contact Your Physician JOSE SOL DO Jan 20, 2019 7:19 am POS
--- NOTE | 2019-01-20 07:30 | NUR ---
0730 FF @ umb. Moderate rubra flow. Pt shaking - unable to obtain BP on arm. Cuff applied to rt lower leg. Breast feeding. Denies pain. 0745 FF @ umb with moderate rubra flow. Breast feeding. Can partially move legs (labor epidural) 0800 FF @ umb with moderate rubra flow. Continues to nurse 0815 FF @ umb with moderate rubra flow. 0830 FF @ umb with moderate rubra flow. Parents and grandparents at bedside. Bonding well. 0900 FF @ umb with moderate rubra flow. Up to void with assistance of RN. Pad changed. Garth gerardoel, Dermaplast, denise bottle given with explainations. Ambulated to well. 0915 Transferred to [facility] per wheelchair. Family accompanied.
[2019-01-20] MEDS ORDERED: LIDOCAINE/EPI 2% 1:200,00 (XYLOCAINE) 10 ML VIAL INJ ONE (07:45)
[2019-01-20] MEDS: DOCUSATE SODIUM 100 MG (COLACE) CAP PO SCH ×2 (08:53→21:15)
[2019-01-20] MEDS: FERROUS SULF 325 MG (IRON) TAB PO SCH (08:53)
[2019-01-20] MEDS: IBUPROFEN 600 MG (MOTRIN) TAB PO SCH ×2 (11:02→17:25)
--- NOTE | 2019-01-20 13:31 | Anesthesia-Regional Post-Op ---
Regional Patient Condition Mental Status: Alert, Oriented x3 Circulation: Same as Pre-Op Headache: Absent Sensation: Full Recovery Motor Block: Absent Post Op Complications Complications None Follow Up Care/Instructions Patient Instructions None needed. Anesthesia/Patient Condition Patient is doing well, no complaints, stable vital signs, no apparent adverse anesthesia problems. No complications reported per nursing. KARINA VIEYRA CRNA Jan 20, 2019 13:31 POS
[2019-01-20] MEDS ORDERED: CATHETER FLUSH 10 ML SYR IV SCH (14:00)
--- NOTE | 2019-01-20 20:00 | NUR ---
Visitors here. Will return later for assessment. No s/s of distress noted. Call light within reach.
[2019-01-20] MEDS: HYDROcodone/APAP 5 MG/325 MG (LORTAB) TAB PO PRN (21:15)
[2019-01-21 00:05] VITALS: BP 80/44
[2019-01-21] MEDS: IBUPROFEN 600 MG (MOTRIN) TAB PO SCH ×3 (00:09→12:25)
[2019-01-21 04:50] VITALS: BP 109/58
[2019-01-21 06:05] LABS: BASOPHILS % (AUTO) 0 % (0-10); EOSINOPHILS # (AUTO) 0.1 10^3/uL (0.0-0.3); EOSINOPHILS % (AUTO) 1 % (0-10); HEMATOCRIT 29 % (35-52); HEMOGLOBIN 9.4 G/DL (11.5-16.0); LYMPHOCYTES # (AUTO) 3.5 X 10^3 (1.0-4.0); LYMPHOCYTES % (AUTO) 19 % (12-44); MEAN CORPUSCULAR HEMOGLOBIN 31 PG (25-34); MEAN CORPUSCULAR HGB CONC 32 G/DL (32-36); MEAN CORPUSCULAR VOLUME 97 FL (80-99); MEAN PLATELET VOLUME 10.6 FL (7.4-10.4); MONOCYTES # (AUTO) 1.4 X 10^3 (0.0-1.0); MONOCYTES % (AUTO) 8 % (0-12); NEUTROPHILS # (AUTO) 13.6 X 10^3 (1.8-7.8); NEUTROPHILS % (AUTO) 73 % (42-75); PLATELET COUNT 238 10^3/uL (130-400); RED CELL DISTRIBUTION WIDTH 13.7 % (10.0-14.5); WHITE BLOOD COUNT 18.6 10^3/uL (4.3-11.0)
[2019-01-21] MEDS ORDERED: PRENATAL VITAMIN 1 EA TAB PO SCH (07:00)
--- NOTE | 2019-01-21 09:10 | Postpartum Progress Note ---
Note Note Day # 1 Subjective: Patient is without complaints. Ambulating, voiding. Tolerating a regular diet without nausea or vomiting. Normal lochia. Pain is well controlled with oral pain medications. [] feeding. [] Objective: Physical Exam: General - Alert and oriented, no apparent distress Abdomen - Soft, appropriately tender to palpation, non-distended, fundus firm at umbilicus Extremities - no edema, negative Feliciano's bilaterally Assessment: PPD 1 NVD Acute blood loss anemia Plan: Routine care. Encourage breast feeding. Encourage ambulation. Ferrous sulfate supplementation. Plan for discharge today Vitals - Labs Vital Signs - I&O Vital Signs Date Time Temp Pulse Resp B/P (MAP) Pulse Ox O2 Delivery O2 Flow Rate FiO2 01/21/19 04:50 37.1 79 16 109/58 (75) 98 Room Air 01/21/19 00:05 36.3 80 16 80/44 (56) 97 Room Air 01/20/19 21:05 36.6 100 16 114/61 (78) 97 Room Air 01/20/19 18:52 36.7 80 16 97 Room Air 01/20/19 14:50 36.7 80 16 106/58 (74) 97 Room Air 01/20/19 11:00 37.7 80 16 103/66 (78) 99 Room Air I & O 01/21/19 07:00 Intake Total 500 ml Balance 500 ml Labs Laboratory Tests 01/21/19 05:55: White Blood Count 18.6H, Red Blood Count 3.02L, Hemoglobin 9.4L, Hematocrit 29L, Mean Corpuscular Volume 97, Mean Corpuscular Hemoglobin 31, Mean Corpuscular Hemoglobin Concent 32, Red Cell Distribution Width 13.7, Platelet Count 238, Mean Platelet Volume 10.6H, Neutrophils (%) (Auto) 73, Lymphocytes (%) (Auto) 19, Monocytes (%) (Auto) 8, Eosinophils (%) (Auto) 1, Basophils (%) (Auto) 0, Neutrophils # (Auto) 13.6H, Lymphocytes # (Auto) 3.5, Monocytes # (Auto) 1.4H, Eosinophils # (Auto) 0.1, Basophils # (Auto) 0.0 Microbiology 01/19/19 Urine Culture - Preliminary, Resulted Culture In Progress JOSE SOL DO Jan 21, 2019 9:10 am POS
--- NOTE | 2019-01-21 09:10 | NUR ---
here. dismissal orders received.
[2019-01-21] MEDS: DOCUSATE SODIUM 100 MG (COLACE) CAP PO SCH (09:41)
[2019-01-21] MEDS: HYDROcodone/APAP 5 MG/325 MG (LORTAB) TAB PO PRN (09:42)
[2019-01-21] MEDS: FERROUS SULF 325 MG (IRON) TAB PO SCH (09:42)
[2019-01-21 09:44] VITALS: BP 109/64
--- NOTE | 2019-01-21 09:44 | NUR ---
scheduled medications given. see eMar for further. Lortab given per pt's request for cramping. rates @ 5 on 1-10 scale. POC reviewed, states understanding.
--- NOTE | 2019-01-21 12:25 | NUR ---
Written dismissal instructions and verbalizes understanding. reviewed follow up medications. instructed pt to schedule 6 week post appointment. signature page signed, placed on chart.
--- NOTE | 2019-01-21 12:50 | NUR ---
pt ambulated to private vehicle with this RN, and s/o @ side. secured in rear facing car seat. pt stable with no sx's of distress noted.
== END 2019-01-21 12:50 | disposition home or self-care (01) | DRG 806 ==
LOC: WSo 08:46 → LDRP 08:47 → WSo 09:09 → LDRP 09:10
PROVIDERS: ADMIT Obstetrics & Gynecology; ATTEND Obstetrics & Gynecology
PROC: 10E0XZZ Delivery of Products of Conception, External Approach (ICD-10-PCS; principal; 2019-01-20)
PROC: 0UQMXZZ Repair Vulva, External Approach (ICD-10-PCS; 2019-01-20)
DX: O99.62 Diseases of the digestive system complicating childbirth (principal); Z37.0 Single live birth; D62 Acute posthemorrhagic anemia; O70.0 First degree perineal laceration during delivery; O90.81 Anemia of the puerperium; K21.9 Gastro-esophageal reflux disease without esophagitis; Z3A.38 38 weeks gestation of pregnancy
CPT/HCPCS: 36415; 81000; 85025; 86850; 86900; 86901; 87088

== ENCOUNTER 2019-10-29 00:08 | Emergency (ER) | payer MEDICAID, OTHER ==
[~2019-10-29] VITALS: Ht 157.4 cm; Wt 65.8 kg
[~2019-10-29 00:08] MED LIST changes: +ACHD5005 PO; +Benzocaine/Menthol TP; +DIBU30OI TOP; +DOCU100C37 PO; +FERR325T18 PO; +IBUP-844 PO
[2019-10-29 00:25] LABS: BILIRUBIN,URINE NEGATIVE (NEGATIVE); CLARITY,URINE TURBID; COLOR,URINE YELLOW; GLUCOSE, URINE (UA) NEGATIVE (NEGATIVE); KETONES,URINE 1+ (NEGATIVE); LEUKOCYTE ESTERASE ,URINE TRACE (NEGATIVE); NITRITE,URINE NEGATIVE (NEGATIVE); PROTEIN,URINE NEGATIVE (NEGATIVE)
[2019-10-29] MEDS ORDERED: KETOROLAC 30 MG/ML VIAL IVP STA (00:25)
[2019-10-29] MEDS ORDERED: LACTATED RINGERS 1,000 ML IV ONE (00:25)
--- NOTE | 2019-10-29 00:34 | ED Abdominal Pain ---
General Chief Complaint: Abdominal/GI Problems Stated Complaint: PELVIC PAIN Nursing Triage Note: Pt c/o rt flank pain. States had similar pain last night that lasted approx 1-2 hours. 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 NOTHING WORSENS OR IMPROVES PAIN STATES PAIN IS SEVERE AND FEELS LIKE "CONTRACTION PAINS" HAD SIMILAR EPISODE LAST NIGHT, LASTED 2 HOURS--TOOK IBUPROFEN LAST NIGHT AND IT HELPED. TOOK IBUPROFEN AT MIDNIGHT TONIGHT HAD NAUSEA AND VOMITED X 1 LAST NIGHT. NO NAUSEA/VOMITING TONIGHT NORMAL BM NO URINARY SYMPTOMS NO FEVER NO VAGINAL BLEEDING OR DISCHARGE. LMP 10/06/19. NORMAL. NO CONTROL PG IS AB 0. LAST DELIVERY 01/2019 NO HISTORY OF SIMILAR NO PRIOR ABDOMINAL SURGERIES OR GI PROBLEMS PCP: [facility] Allergies and Home Medications Allergies Coded Allergies: No Known Drug Allergies (Unverified , 01/01/16) Home Medications Cephalexin 500 Mg Capsule, 500 MG PO TID, (Reported) Dibucaine 30 Gm Oint, 0 GM TOP UD PRN for PAIN- SEE INSTRUCTIONS Prescribed by: JOSE SOL on 01/20/19717 Docusate Sodium 100 Mg Capsule, 100 MG PO BID PRN for CONSTIPATION-1ST LINE Prescribed by: JOSE SOL on 01/20/19717 Ferrous Sulfate 325 Mg Tablet, 325 MG PO DAILY Prescribed by: JOSE SOL on 01/20/19717 Hydrocodone Bit/Acetaminophen 1 Tab Tab, 1 TAB PO Q4H PRN for PAIN-MODERATE (5- 7) Prescribed by: JOSE SOL on 01/20/19717 Hydrocodone/Acetaminophen 1 Each Tablet, 1-2 EACH PO Q4-6 HOURS PRN for PAIN Prescribed by: KRISTIN KAY on 10/29/19152 Ibuprofen 600 Mg Tablet, 600 MG PO Q6HR Prescribed by: JOSE SOL on 01/20/19717 Ketorolac Tromethamine 10 Mg Tablet, 10 MG PO Q6H Prescribed by: KRISTIN KAY on 10/29/19152 Nitrofurantoin Monohyd/M-Cryst 100 Mg Capsule, 1 TAB PO BID Prescribed by: KRISTIN KAY on 10/29/19152 Ondansetron 4 Mg Tab.rapdis, 4 MG PO Q4H Prescribed by: KRISTIN KAY on 10/29/19152 Bdl593/Iron Fumarate/FA/Dss 1 Each Tablet, 1 EACH PO DAILY, (Reported) Tamsulosin HCl 0.4 Mg Cap, 0.4 MG PO DAILY Prescribed by: KRISTIN KAY on 10/29/19152 [Benzocaine/Menthol] 56 ML AEROSOL, 56 ML TP UD PRN for PAIN- SEE INSTRUCTIONS EXTERNAL USE ONLY Prescribed by: JOSE SOL on 01/20/19717 Patient Home Medication List Home Medication List Reviewed: Yes Review of Systems Review of Systems Constitutional: no symptoms reported Respiratory: No Symptoms Reported Cardiovascular: No Symptoms Reported Gastrointestinal: See HPI, Abdominal Pain, Nausea, Vomiting Genitourinary: See HPI; Denies Burning, Denies Discharge, Denies Drainage, Denies Frequency; Flank Pain; Denies Hematuria, Denies Incontinence, Denies Pain, Denies Urgency Musculoskeletal: see HPI, back pain Skin: no symptoms reported Psychiatric/Neurological: No Symptoms Reported Endocrine: No Symptoms Reported Hematologic/Lymphatic: No Symptoms Reported Past Rvbuwme-Lyyjen-Kqlaia Hx Past Med/Social Hx: Reviewed and Corrections made Patient Social History Alcohol Use: Rarely Uses Recreational Drug Use: No Smoking Status: Former Smoker Type Used: Cigars Former Smoker, Quit: Nov 18, 2015 2nd Hand Smoke Exposure: No Recent Foreign Travel: No Contact w/Someone Who Travel: No Recent Infectious Disease Expo: No Recent Hopitalizations: No Immunizations Up To Date Tetanus Booster (TDap): Unknown PED Vaccines UTD: Yes Date of Influenza Vaccine: Dec 21, 2018 Seasonal Allergies Seasonal Allergies: No Past Medical History Surgeries: Yes (DENTAL) Respiratory: No Cardiac: No Neurological: No : No Hx : 2 Hx Para: 2 Reproductive Disorders: No Female Reproductive Disorders: Denies Sexually Transmitted Disease: No HIV/AIDS: No Genitourinary: No Gastrointestinal: No Musculoskeletal: No Endocrine: No HEENT: Yes (wears contacts/glasses) Cancer: No Psychosocial: No Integumentary: No Blood Disorders: No Adverse Reaction/Blood Tranf: No Family Medical History FH: breast cancer (grandmother) FH: heart disease (grandfather) FH: hyperlipidemia (grandfather) Hypertension (grandfather) Physical Exam Vital Signs Vital Signs - First Documented 10/29/19 00:17 Temp 36.9 Pulse 99 Resp 18 B/P (MAP) 132/92 (105) Pulse Ox 97 O2 Delivery Room Air Capillary Refill : Less Than 3 Seconds Height/Weight/BMI Height: 5'2.00" Weight: 125lbs. oz. 56.617868iv; 26.00 BMI Method:Stated General Appearance: WD/WN, other (PACING, CANNOT SIT OR LAY DOWN. HOLDING RIGHT FLANK) Respiratory: normal breath sounds, no respiratory distress, no accessory muscle use Cardiovascular: regular rate, rhythm, no murmur Gastrointestinal: normal bowel sounds, soft, no organomegaly, no pulsatile mass; No distended, No guarding, No rebound; tenderness (RIGHT FLANK AND RLQ); No hernia, No mass Extremities: normal inspection, normal capillary refill Back: CVA tenderness (R) Neurologic/Psychiatric: change lead II-XII nml as tested, no motor/sensory deficits, alert, normal mood/affect, oriented x 3 Skin: normal color, warm/dry Progress/Results/Core Measures Results/Orders Lab Results Laboratory Tests Test 10/29/19 00:18 10/29/19 00:30 Range/Units Urine Color YELLOW Urine Clarity TURBID Urine pH 6.0 5-9 Urine Specific [place] 1.025 H 1.016-1.022 Urine Protein NEGATIVE NEGATIVE Urine Glucose (UA) NEGATIVE NEGATIVE Urine Ketones 1+ H NEGATIVE Urine Nitrite NEGATIVE NEGATIVE Urine Bilirubin NEGATIVE NEGATIVE Urine Urobilinogen 0.2 < = 1.0 MG/DL Urine Leukocyte Esterase TRACE H NEGATIVE Urine RBC (Auto) TRACE-I NEGATIVE Urine RBC 2-5 H /HPF Urine WBC 0-2 /HPF Urine Squamous Epithelial Cells 10-25 H /HPF Urine Crystals NONE /LPF Urine Bacteria TRACE /HPF Urine Casts NONE /LPF Urine Mucus LARGE H /LPF Urine Culture Indicated NO White Blood Count 9.3 4.3-11.0 10^3/uL Red Blood Count 4.46 4.35-5.85 10^6/uL Hemoglobin 14.2 11.5-16.0 G/DL Hematocrit 43 35-52 % Mean Corpuscular Volume 96 80-99 FL Mean Corpuscular Hemoglobin 32 25-34 PG Mean Corpuscular Hemoglobin Concent 33 32-36 G/DL Red Cell Distribution Width 12.6 10.0-14.5 % Platelet Count 290 130-400 10^3/uL Mean Platelet Volume 10.9 H 7.4-10.4 FL Neutrophils (%) (Auto) 57 42-75 % Lymphocytes (%) (Auto) 36 12-44 % Monocytes (%) (Auto) 6 0-12 % Eosinophils (%) (Auto) 1 0-10 % Basophils (%) (Auto) 1 0-10 % Neutrophils # (Auto) 5.2 1.8-7.8 X 10^3 Lymphocytes # (Auto) 3.4 1.0-4.0 X 10^3 Monocytes # (Auto) 0.6 0.0-1.0 X 10^3 Eosinophils # (Auto) 0.1 0.0-0.3 10^3/uL Basophils # (Auto) 0.1 0.0-0.1 10^3/uL Sodium Level 139 135-145 MMOL/L Potassium Level 3.7 3.6-5.0 MMOL/L Chloride Level 108 H 98-107 MMOL/L Carbon Dioxide Level 20 L 21-32 MMOL/L Anion Gap 11 5-14 MMOL/L Blood Urea Nitrogen 9 7-18 MG/DL Creatinine 0.88 0.60-1.30 MG/DL Estimat Glomerular Filtration Rate > 60 BUN/Creatinine Ratio 10 Glucose Level 108 H 70-105 MG/DL Calcium Level 8.5 8.5-10.1 MG/DL Corrected Calcium 8.5 8.5-10.1 MG/DL Total Bilirubin 0.5 0.1-1.0 MG/DL Aspartate Amino Transf (AST/SGOT) 21 5-34 U/L Alanine Aminotransferase (ALT/SGPT) 18 0-55 U/L Alkaline Phosphatase 54 40-136 U/L Total Protein 6.3 L 6.4-8.2 GM/DL Albumin 4.0 3.2-4.5 GM/DL My Orders Orders - KRISTIN KAY DO Urine Bedside (10/29/19 00:13) Ua Culture If Indicated (10/29/19 00:13) Ed Iv/Invasive Line Start (10/29/19 00:25) Cbc With Automated Diff (10/29/19 00:25) Comprehensive Metabolic Panel (10/29/19 00:25) Abdomen/Kub 1view (10/29/19 00:25) Ct Abd/Pelvis Wo(Kidney Stone) (10/29/19 00:25) Ed Iv/Invasive Line Start (10/29/19 00:25) Lactated Ringers (Lr 1000 Ml Iv Solution (10/29/19 00:25) Ketorolac Injection (Toradol Injection) (10/29/19 00:25) Tamsulosin Capsule (Flomax Capsule) (10/29/19 01:45) Rx-Nitrofurantoin [place] (Rx-Macrobid) (10/29/19 01:40) Rx-Hydrocodone/Apap 5-325 Mg (Rx-Vicodin (10/29/19 01:45) Rx-Ondansetron Po (Rx-Zofran Po) (10/29/19 01:40) Medications Given in ED Current Medications Medications Dose Ordered Sig/Micheal Route Start Time Stop Time Status Last Admin Dose Admin Acetaminophen/ Hydrocodone Bitart 1 ea Q4H PRN PO 10/29/19 01:45 10/29/19 01:55 1 EA Lactated Ringer's 1,000 ml @ 0 mls/hr Q0M ONCE IV 10/29/19 00:25 10/29/19 00:27 DC 10/29/19 00:30 999 MLS/HR Vital Signs/I&O 10/29/19 00:17 Temp 36.9 Pulse 99 Resp 18 B/P (MAP) 132/92 (105) Pulse Ox 97 O2 Delivery Room Air Blood Pressure Mean: 105 Progress Progress Note : Progress Note PAIN COMPLETELY RESOLVED WITH TORADOL Diagnostic Imaging Comments KUB--CALCIFICATION IN RIGHT PELVIS--PENDING RADIOLOGIST REVIEW CT ABDOMEN/PELVIS--5.5 MM CALCULUS RIGHT DISTAL URETER AT UVJ TRANSITIONING INTO BLADDER, WITH RIGHT HYDROURETERONEPHROSIS AND PERIURETERAL FAT STRANDING. PER [facility] VIA FAX AT 0140 Reviewed: Reviewed by Me Departure Impression Primary Impression: Right distal ureteral calculus Disposition: HOME, SELF-CARE Condition: Improved Departure-Patient Inst. Referrals: BERNABE CROCKETT MD [facility] [place] [facility] [place] Patient Instructions: Kidney Stones (DC), How to Strain Your Urine Add. Discharge Instructions: STRAIN ALL URINE--RETURN ANY STONES TO UROLOGIST'S OFFICE LOTS OF WATER AND CLEAR LIQUIDS FOLLOW UP WITH DR. CROCKETT THIS WEEK FOR FURTHER CARE, RETURN TO ER IF WORSE All discharge instructions reviewed with patient and/or family. Voiced understanding. Scripts Ondansetron (Ondansetron Odt) 4 Mg Tab.rapdis 4 MG PO Q4H for Nausea/Vomiting, #10 TAB Prov: KRISTIN KAY K DO 10/29/19 Ketorolac Tromethamine (Ketorolac Tromethamine) 10 Mg Tablet 10 MG PO Q6H for Pain, #15 TAB Prov: RAHULKRISTIN K DO 10/29/19 Nitrofurantoin Monohyd/M-Cryst (Macrobid 100 mg Capsule) 100 Mg Capsule 1 TAB PO BID, #20 CAP Prov: RAHULKRISTIN K DO 10/29/19 Hydrocodone/Acetaminophen (Hydrocodone-Acetamin 5-325 mg) 1 Each Tablet 1-2 EACH PO Q4-6 HOURS PRN for PAIN, #20 TAB Prov: ELDA KAYA K DO 10/29/19 Tamsulosin HCl (Flomax) 0.4 Mg Cap 0.4 MG PO DAILY, #10 CAP Prov: RAHULKRISTIN K DO 10/29/19 RAHULKRISTIN K DO Oct 29, 2019 00:34
[2019-10-29 00:46] LABS: BASOPHILS # (AUTO) 0.1 10^3/uL (0.0-0.1); BASOPHILS % (AUTO) 1 % (0-10); EOSINOPHILS # (AUTO) 0.1 10^3/uL (0.0-0.3); EOSINOPHILS % (AUTO) 1 % (0-10); HEMATOCRIT 43 % (35-52); HEMOGLOBIN 14.2 G/DL (11.5-16.0); LYMPHOCYTES # (AUTO) 3.4 X 10^3 (1.0-4.0); LYMPHOCYTES % (AUTO) 36 % (12-44); MEAN CORPUSCULAR HEMOGLOBIN 32 PG (25-34); MEAN CORPUSCULAR HGB CONC 33 G/DL (32-36); MEAN CORPUSCULAR VOLUME 96 FL (80-99); MEAN PLATELET VOLUME 10.9 FL (7.4-10.4); MONOCYTES # (AUTO) 0.6 X 10^3 (0.0-1.0); MONOCYTES % (AUTO) 6 % (0-12); NEUTROPHILS # (AUTO) 5.2 X 10^3 (1.8-7.8); NEUTROPHILS % (AUTO) 57 % (42-75); PLATELET COUNT 290 10^3/uL (130-400); RED CELL DISTRIBUTION WIDTH 12.6 % (10.0-14.5); WHITE BLOOD COUNT 9.3 10^3/uL (4.3-11.0)
[2019-10-29 00:48] LABS: WBC,URINE 0-2 /HPF
[2019-10-29 00:49] LABS: BACTERIA,URINE TRACE /HPF
[2019-10-29 00:59] LABS: ALANINE AMINOTRANSFERASE 18 U/L (0-55); ALKALINE PHOSPHATASE 54 U/L (40-136); BILIRUBIN,TOTAL 0.5 MG/DL (0.1-1.0); BUN/CREATININE RATIO 10; CALCIUM 8.5 MG/DL (8.5-10.1); CARBON DIOXIDE 20 MMOL/L (21-32); CHLORIDE 108 MMOL/L (98-107); CREATININE SERUM 0.88 MG/DL (0.60-1.30); GFR ESTIMATED > 60; GLUCOSE 108 MG/DL (70-105); POTASSIUM 3.7 MMOL/L (3.6-5.0); SODIUM 139 MMOL/L (135-145); TOTAL PROTEIN 6.3 GM/DL (6.4-8.2)
[2019-10-29] MEDS ORDERED: RX-ONDANSETRON 4 MG ODT (ZOFRAN) PPK #4 PO STA (01:40)
[2019-10-29] MEDS ORDERED: RX-NITROFURANTOIN 100 MG (MACROBID) CAP PPK#2 PO STA (01:40)
[2019-10-29] MEDS ORDERED: TAMSULOSIN 0.4 MG (FLOMAX) CAP PO SCH (01:45)
[2019-10-29] MEDS ORDERED: RX-HYDROCODONE/APAP 5/325 MG #4 TAB PK PO PRN (01:45)
[2019-10-29] MEDS ORDERED: ONDA4TAB11 PO (01:53)
[2019-10-29] MEDS ORDERED: HYDR-3812 PO (01:53)
[2019-10-29] MEDS ORDERED: NITR-65 PO (01:53)
[2019-10-29] MEDS ORDERED: KETO10TA PO (01:53)
[2019-10-29] MEDS ORDERED: TMSL.4C PO (01:53)
[2019-10-29 02:00] VITALS: BP 122/86
--- NOTE | 2019-10-29 05:45 | Diagnostic Imaging Report ---
PROCEDURE: CT urinary tract, rule out kidney stone. TECHNIQUE: Multiple contiguous axial images were obtained through the abdomen and pelvis without the use of intravenous contrast. Auto Exposure Controls were utilized during the CT exam to meet ALARA standards for radiation dose reduction. INDICATION: Flank pain. Comparison made with prior examination 12/30/2017. FINDINGS: The heart size is normal. The lung bases are clear. The liver is normal in size without focal lesions. Gallbladder is unremarkable. There is no biliary ductal dilatation. Spleen is normal. The pancreas and adrenal glands are unremarkable. There is right hydronephrosis and hydroureter secondary to a 5.5 mm stone at the right UVJ. Left kidney is normal in appearance. The aorta is nonaneurysmal. Bowel gas pattern is nonspecific. There is no free air. Bladder is normal. Uterus is normal. There is no pelvic mass or adenopathy. The osseous structures are unremarkable. IMPRESSION: Right hydronephrosis and hydroureter secondary to a 5.5 mm stone at the right UVJ. Dictated by: Dictated on workstation # [id number]
--- NOTE | 2019-10-29 06:36 | Diagnostic Imaging Report ---
INDICATION: Abdominal pain. FINDINGS: Supine view of the abdomen demonstrates normal bowel gas pattern. There is a calcification in the right pelvis which is consistent with phlebolith or maybe a ureteral calculi. Recommend CT scanning for further evaluation. IMPRESSION: There is a calcification in the right pelvis, recommend a CT scan. A subsequent CT scan was obtained. Dictated by: Dictated on workstation # [id number]
== END 2019-10-29 02:00 | disposition home or self-care (01) ==
LOC: EDUNIT# 00:08 → ER 00:10
DX: N13.2 Hydronephrosis with renal and ureteral calculous obstruction (principal); Z87.891 Personal history of nicotine dependence; Z80.3 Family history of malignant neoplasm of breast; Z82.49 Family history of ischemic heart disease and other diseases of the circulatory system
CPT/HCPCS: 36415; 74018; 74176; 80053; 81000; 84703; 85025

== ENCOUNTER → 2020-09-03 | Outpatient (CLI) | payer MEDICAID ==
[~2020-09-03] MED LIST changes: +KETO10TA PO; +NITR-65 PO; +ONDA4TAB11 PO; +TMSL.4C PO
--- NOTE | 2020-09-03 17:23 | Diagnostic Imaging Report ---
INDICATION: patient, survey. TECHNIQUE: Multiple real-time grayscale images were obtained over the gravid uterus. COMPARISON: None during this . FINDINGS: A single live intrauterine fetus is seen measuring 21 weeks 5 days in size by composite measurements. Sonographic EDC is 01/09/2021. The fetus is in cephalic presentation. Placenta is anterior with no evidence of previa. Amniotic fluid is qualitatively normal. heart rate is 153 BPM. Maternal adnexa could not be well visualized. survey shows normal-appearing kidneys and bladder and stomach. Normal-appearing intracranial ventricles and intracranial structures are seen. Four-chamber heart view appears normal. Three-vessel cord and cord insertion were normal. Views of the spine were limited. Biometrical measurements are as follows: Biparietal 5.03 cm, age 21 weeks 2 days. Head circumference 18.70 cm, age 21 weeks 1 days. Abdominal circumference 17.26 cm, age 22 weeks 2 days. Femur length 3.73 cm, age 22 weeks 0 days. Sonographic estimate age: 21 weeks 5 days. Sonographic estimated date of delivery: 01/09/21. Estimated Weight: 462 gm (+/- 67 gm). LMP percentile: 48%. heart rate: 153 beats per minute. number: 1 of 1. IMPRESSION: Single live intrauterine fetus measuring 21 weeks 5 days in size by composite measurements with no detectable abnormalities. Views of the spine were limited, consider follow-up if clinically warranted. Dictated by: Dictated on workstation # [id number]
== END ==
LOC: RAD 15:18
PROVIDERS: ATTEND Nurse Practitioner Women's Health
DX: Z34.02 Encounter for supervision of normal first pregnancy, second trimester (principal); Z3A.21 21 weeks gestation of pregnancy
CPT/HCPCS: 76805

== ENCOUNTER 2020-11-13 11:04 | Emergency (ER) | payer MEDICAID ==
[~2020-11-13] VITALS: Ht 157.5 cm; Wt 75.3 kg
--- NOTE | 2020-11-13 11:13 | ED Chest Pain ---
General Stated Complaint: CP Source: patient Exam Limitations: no limitations History of Present Illness Date Seen by Provider: Nov 13, 2020 Time Seen by Provider: 11:11 Initial Comments To ER with reports of sharp chest pain that began 20 minutes ago and is now gone. It was worsened by deep breathing. No fever chills cough or shortness of breath. No history of this. She is 32 weeks gestation. She has never had this symptom previously with . Timing/Duration: 1/2 hour Severity/Quality: sharp Location: central Radiation: no radiation Activities at Onset: none ASA po REACTOR SERVICE OPERATOR: No NTG SL REACTOR SERVICE OPERATOR: No Associated Symptoms: denies symptoms Allergies and Home Medications Allergies Coded Allergies: No Known Drug Allergies (Unverified , 01/01/16) Patient Home Medication List Home Medication List Reviewed: Yes Cephalexin (Keflex) 500 Mg Capsule, 500 MG PO TID, (Reported) Entered as Reported by: CHEMO GUERRERO on 01/05/18 0845 Dibucaine (Dibucaine) 30 Gm Oint, 0 GM TOP UD PRN for PAIN- SEE INSTRUCTIONS Prescribed by: JOSE SOL on 01/20/19717 Docusate Sodium (Docusate Sodium) 100 Mg Capsule, 100 MG PO BID PRN for CONSTIPATION-1ST LINE Prescribed by: JOSE SOL on 01/20/19717 Ferrous Sulfate (Ferrous Sulfate) 325 Mg Tablet, 325 MG PO DAILY Prescribed by: JOSE SOL on 01/20/19717 Hydrocodone Bit/Acetaminophen (Lortab 5 Mg Tablet) 1 Tab Tab, 1 TAB PO Q4H PRN for PAIN-MODERATE (5-7) Prescribed by: JOSE SOL on 01/20/19717 Hydrocodone/Acetaminophen (Hydrocodone-Acetamin 5-325 mg) 1 Each Tablet, 1-2 EACH PO Q4-6 HOURS PRN for PAIN Prescribed by: KRISTIN KAY on 10/29/19152 Ibuprofen (Ibu) 600 Mg Tablet, 600 MG PO Q6HR Prescribed by: JOSE SOL on 01/20/19717 Ketorolac Tromethamine (Ketorolac Tromethamine) 10 Mg Tablet, 10 MG PO Q6H Prescribed by: KRISTIN KAY on 10/29/19152 Nitrofurantoin Monohyd/M-Cryst (Macrobid 100 mg Capsule) 100 Mg Capsule, 1 TAB PO BID Prescribed by: KRISTIN KAY on 10/29/19152 Ondansetron (Ondansetron Odt) 4 Mg Tab.rapdis, 4 MG PO Q4H Prescribed by: KRISTIN KAY on 10/29/19152 [id number]/Iron Fumarate/FA/Dss ( 19 Tablet) 1 Each Tablet, 1 EACH PO DAILY, (Reported) Entered as Reported by: ZENY SIMMS on 01/01/16 151 Tamsulosin HCl (Flomax) 0.4 Mg Cap, 0.4 MG PO DAILY Prescribed by: KRISTIN KAY on 10/29/19152 [Benzocaine/Menthol] 56 ML AEROSOL, 56 ML TP UD PRN for PAIN- SEE INSTRUCTIONS Prescribed by: JOSE SOL on 01/20/19 0718 Review of Systems Review of Systems Constitutional: see HPI EENTM: No Symptoms Reported Respiratory: No Symptoms Reported Cardiovascular: See HPI, Chest Pain Gastrointestinal: No Symptoms Reported Genitourinary: No Symptoms Reported Musculoskeletal: no symptoms reported Skin: no symptoms reported Psychiatric/Neurological: No Symptoms Reported Endocrine: No Symptoms Reported Hematologic/Lymphatic: No Symptoms Reported Past Qridxpk-Rihprf-Cnnnti Hx Immunizations Up To Date Tetanus Booster (TDap): Less than 5yrs PED Vaccines UTD: Yes Seasonal Allergies Seasonal Allergies: No Past Medical History Surgeries: Yes (DENTAL) Respiratory: No Cardiac: No Neurological: No Reproductive Disorders: No Female Reproductive Disorders: Denies Sexually Transmitted Disease: No HIV/AIDS: No Genitourinary: No Gastrointestinal: No Musculoskeletal: No Endocrine: No HEENT: Yes (wears contacts/glasses) Cancer: No Psychosocial: No Integumentary: No Blood Disorders: No Adverse Reaction/Blood Tranf: No Family Medical History FH: breast cancer (grandmother) FH: heart disease (grandfather) FH: hyperlipidemia (grandfather) Hypertension (grandfather) Physical Exam Vital Signs Vital Signs - First Documented 11/13/20 11:05 Temp 36.8 Pulse 80 Resp 18 B/P (MAP) 131/73 (92) Pulse Ox 98 Capillary Refill : Height, Weight, BMI Height: 5'2.00" Weight: 125lbs. oz. 56.414226se; 26.00 BMI Method:Stated General Appearance: No Apparent Distress, WD/WN HEENT: PERRL/EOMI, TMs Normal Neck: Full Range of Motion, Normal Inspection Respiratory: No Accessory Muscle Use, No Respiratory Distress Cardiovascular: Regular Rate, Rhythm, Normal Peripheral Pulses Gastrointestinal: Normal Bowel Sounds, Non Tender, Soft Extremity: Normal Capillary Refill, Normal Inspection Neurologic/Psychiatric: Alert, Oriented x3 Skin: Normal Color, Warm/Dry Progress/Results/Core Measures Results/Orders Lab Results Laboratory Tests Test 11/13/20 11:11 Range/Units White Blood Count 10.7 4.3-11.0 10^3/uL Red Blood Count 3.29 L 3.80-5.11 10^6/uL Hemoglobin 10.5 L 11.5-16.0 g/dL Hematocrit 33 L 35-52 % Mean Corpuscular Volume 101 H 80-99 fL Mean Corpuscular Hemoglobin 32 25-34 pg Mean Corpuscular Hemoglobin Concent 32 32-36 g/dL Red Cell Distribution Width 13.2 10.0-14.5 % Platelet Count 223 130-400 10^3/uL Mean Platelet Volume 11.1 9.0-12.2 fL Immature Granulocyte % (Auto) 1 % Neutrophils (%) (Auto) 71 42-75 % Lymphocytes (%) (Auto) 20 12-44 % Monocytes (%) (Auto) 7 0-12 % Eosinophils (%) (Auto) 1 0-10 % Basophils (%) (Auto) 0 0-10 % Neutrophils # (Auto) 7.6 1.8-7.8 10^3/uL Lymphocytes # (Auto) 2.2 1.0-4.0 10^3/uL Monocytes # (Auto) 0.7 0.0-1.0 10^3/uL Eosinophils # (Auto) 0.1 0.0-0.3 10^3/uL Basophils # (Auto) 0.0 0.0-0.1 10^3/uL Immature Granulocyte # (Auto) 0.1 0.0-0.1 10^3/uL Sodium Level 139 135-145 MMOL/L Potassium Level 3.5 L 3.6-5.0 MMOL/L Chloride Level 108 H 98-107 MMOL/L Carbon Dioxide Level 22 21-32 MMOL/L Anion Gap 9 5-14 MMOL/L Blood Urea Nitrogen 5 L 7-18 MG/DL Creatinine 0.65 0.60-1.30 MG/DL Estimat Glomerular Filtration Rate 112 BUN/Creatinine Ratio 8 Glucose Level 81 70-105 MG/DL Calcium Level 8.6 8.5-10.1 MG/DL My Orders Orders - ROSARIO GAITAN APRN Cbc With Automated Diff (11/13/20 11:10) Chest 1 View, Ap/Pa Only (11/13/20 11:10) Ekg Tracing (11/13/20 11:10) Basic Metabolic Panel (11/13/20 11:10) Ua Culture If Indicated (11/13/20 11:10) Ed Iv/Invasive Line Start (11/13/20 11:10) Vital Signs/I&O 11/13/20 11:05 Temp 36.8 Pulse 80 Resp 18 B/P (MAP) 131/73 (92) Pulse Ox 98 Departure Impression Primary Impression: Pleuritic chest pain Disposition: HOME, SELF-CARE Condition: Stable Departure-Patient Inst. Decision time for Depature: 12:10 Referrals: JOSE SOL DO (PCP/Family) Primary Care Physician Patient Instructions: Pleuritic Chest Pain ED ROSARIO GAITAN APRN Nov 13, 2020 11:13
[2020-11-13 11:19] LABS: BASOPHILS % (AUTO) 0 % (0-10); EOSINOPHILS # (AUTO) 0.1 10^3/uL (0.0-0.3); EOSINOPHILS % (AUTO) 1 % (0-10); HEMATOCRIT 33 % (35-52); HEMOGLOBIN 10.5 g/dL (11.5-16.0); LYMPHOCYTES # (AUTO) 2.2 10^3/uL (1.0-4.0); LYMPHOCYTES % (AUTO) 20 % (12-44); MEAN CORPUSCULAR HEMOGLOBIN 32 pg (25-34); MEAN CORPUSCULAR HGB CONC 32 g/dL (32-36); MEAN CORPUSCULAR VOLUME 101 fL (80-99); MEAN PLATELET VOLUME 11.1 fL (9.0-12.2); MONOCYTES # (AUTO) 0.7 10^3/uL (0.0-1.0); MONOCYTES % (AUTO) 7 % (0-12); NEUTROPHILS # (AUTO) 7.6 10^3/uL (1.8-7.8); NEUTROPHILS % (AUTO) 71 % (42-75); PLATELET COUNT 223 10^3/uL (130-400); WHITE BLOOD COUNT 10.7 10^3/uL (4.3-11.0)
[2020-11-13 11:32] LABS: POTASSIUM 3.5 MMOL/L (3.6-5.0)
[2020-11-13 11:33] LABS: CALCIUM 8.6 MG/DL (8.5-10.1)
[2020-11-13 11:38] LABS: CREATININE SERUM 0.65 MG/DL (0.60-1.30)
--- NOTE | 2020-11-13 11:59 | Diagnostic Imaging Report ---
INDICATION: Chest pain during . Single AP view of the chest is obtained. COMPARISON: No previous study is available for comparison at this time. FINDINGS: Heart size and pulmonary vasculature are within normal limits, and the lungs are clear, bilaterally. IMPRESSION: Unremarkable chest. Dictated by: Dictated on workstation # [id number]
[2020-11-13 12:32] LABS: BILIRUBIN,URINE NEGATIVE (NEGATIVE); CLARITY,URINE CLEAR; COLOR,URINE YELLOW; GLUCOSE, URINE (UA) NEGATIVE (NEGATIVE); KETONES,URINE NEGATIVE (NEGATIVE); LEUKOCYTE ESTERASE ,URINE NEGATIVE (NEGATIVE); NITRITE,URINE NEGATIVE (NEGATIVE); PROTEIN,URINE NEGATIVE (NEGATIVE)
[2020-11-13 12:48] LABS: AMORPHOUS SEDIMENT,UR MOD AMOR PHOSPHATE /LPF
[2020-11-13 12:49] LABS: BACTERIA,URINE TRACE /HPF; WBC,URINE 0-2 /HPF
[2020-11-13 13:03] VITALS: BP 109/85
== END 2020-11-13 13:03 | disposition home or self-care (01) ==
LOC: EDUNIT# 11:04 → ER 11:08
DX: O99.413 Diseases of the circulatory system complicating pregnancy, third trimester (principal); R07.81 Pleurodynia; Z3A.32 32 weeks gestation of pregnancy
CPT/HCPCS: 36415; 71045; 80048; 81000; 85025; 93005

== ENCOUNTER 2021-01-05 06:30 | Inpatient (IN) | payer MEDICAID ==
[2021-01-05] VITALS (91 sets, daily range): BP systolic 73–145; BP diastolic 40–98
[~2021-01-05] VITALS: Ht 157.5 cm; Wt 83.6 kg
--- NOTE | 2021-01-05 07:16 | History & Physical-OB ---
OB - Chief Complaint & HPI Date/Time Date of Admission: Date of Admission: Jan 05, 2021 at 06:33 Date seen by a Provider: Jan 05, 2021 Time Seen by a Provider: 07:20 Chief Complaint/History OB-Reason for Admission/Chief: Induction of Labor Hx : 3 Hx Para: 2 Expected Date of Delivery: Jan 08, 2021 Gestational Age in Weeks: 39 Gestational Age in Days: 4 Indication for : desires repeat Admission Nurse Assessment Rev: Yes History of Labs A pos Antibody neg RI RPR NR HBsAg NR HIV NR GC neg GBS neg Allergies and Home Medications Allergies Coded Allergies: No Known Drug Allergies (Unverified , 01/01/16) Patient Home Medication List Home Medication List Reviewed: Yes Cephalexin (Keflex) 500 Mg Capsule, 500 MG PO TID, (Reported) Entered as Reported by: CHEMO GUERRERO on 01/05/18 0845 Dibucaine (Dibucaine) 30 Gm Oint, 0 GM TOP UD PRN for PAIN- SEE INSTRUCTIONS Prescribed by: JOSE SOL on 01/20/19717 Docusate Sodium (Docusate Sodium) 100 Mg Capsule, 100 MG PO BID PRN for CONSTIPATION-1ST LINE Prescribed by: JOSE SOL on 01/20/19717 Ferrous Sulfate (Ferrous Sulfate) 325 Mg Tablet, 325 MG PO DAILY Prescribed by: JOSE SOL on 01/20/19717 Hydrocodone Bit/Acetaminophen (Lortab 5 Mg Tablet) 1 Tab Tab, 1 TAB PO Q4H PRN for PAIN-MODERATE (5-7) Prescribed by: JOSE SOL on 01/20/19717 Hydrocodone/Acetaminophen (Hydrocodone-Acetamin 5-325 mg) 1 Each Tablet, 1-2 EACH PO Q4-6 HOURS PRN for PAIN Prescribed by: KRISTIN KAY on 10/29/19152 Ibuprofen (Ibu) 600 Mg Tablet, 600 MG PO Q6HR Prescribed by: JOSE SOL on 01/20/19717 Ketorolac Tromethamine (Ketorolac Tromethamine) 10 Mg Tablet, 10 MG PO Q6H Prescribed by: KRISTIN KAY on 10/29/19152 Nitrofurantoin Monohyd/M-Cryst (Macrobid 100 mg Capsule) 100 Mg Capsule, 1 TAB PO BID Prescribed by: KRISTIN KAY on 10/29/19152 Ondansetron (Ondansetron Odt) 4 Mg Tab.rapdis, 4 MG PO Q4H Prescribed by: KRISTIN KAY on 10/29/19152 [id number]/Iron Fumarate/FA/Dss ( 19 Tablet) 1 Each Tablet, 1 EACH PO DAILY, (Reported) Entered as Reported by: ZENY SIMMS on 01/01/16 151 Tamsulosin HCl (Flomax) 0.4 Mg Cap, 0.4 MG PO DAILY Prescribed by: KRISTIN KAY on 10/29/19152 [Benzocaine/Menthol] 56 ML AEROSOL, 56 ML TP UD PRN for PAIN- SEE INSTRUCTIONS Prescribed by: JOSE SOL on 01/20/19717 OB - History Hx of Present Care: Yes Ultrasounds: Normal mid trimester US Obstetrical Complications: None Medical Complications: None Delivery History Hx Blood Disorders: No Adverse Rxn to Tranfusion: No Patient Past Medical History n/a Social History/Family History 2nd Hand Smoke Exposure: No Immunizations Hepatitis A: Yes Hepatitis B: Yes Tetanus Booster (TDap): Less than 5yrs Date of Influenza Vaccine: Dec 21, 2018 OB - Admission Exam Physical Exam HEENT: NCAT Heart: Rhythm Normal Lungs: Clear Abdomen: Gravid Extremities: Normal Reflexes: Normal Cervical Dilatation: 3cm Effacement: 75% Station: -1 Membranes: Intact Heart Rate: 130's Accelerations: Accelerations Present Decelerations: No Decelerations Short Term Variability: Present Retirement Variability: Average (6-25) Contractions on Admission: 6-10 Minutes Apart Intensity: Mild Aguilar Scoring Tool (Modified) Dilation (cm): 3-4cm (2) Effacement (%): 51-79% (2) Descent/Station: -1,0 (2) Cervix Consistency: Soft (2) Cervix Position: Anterior (2) Add 1 point for: Each previous vaginal delivery (1) Aguilar Score: 12 OB - Assessment/Plan/Diagnosis Assessment Assessment: induction of labor Admission Dx 25 yo @ 39 weeks GBS neg Admission Status: Inpatient Order (span 2 midnights) Reason for Inpatient Admission: IOL at 39 weeks Plan Plan: Induction JOSE SOL DO Jan 05, 2021 07:16
[2021-01-05] MEDS ORDERED: OXYTOCIN PRE-MIX DRIP 500 ML IV SCH (07:45)
[2021-01-05] MEDS ORDERED: D5 LR IV SOLUTION 1,000 ML IV ONE (07:51)
[2021-01-05] MEDS ORDERED: OXYTOCIN PRE-MIX DRIP 500 ML IV ONE (07:51)
[2021-01-05 07:52] LABS: BASOPHILS % (AUTO) 0 % (0-10); EOSINOPHILS # (AUTO) 0.1 10^3/uL (0.0-0.3); EOSINOPHILS % (AUTO) 1 % (0-10); HEMATOCRIT 36 % (35-52); HEMOGLOBIN 11.8 g/dL (11.5-16.0); LYMPHOCYTES # (AUTO) 2.5 10^3/uL (1.0-4.0); LYMPHOCYTES % (AUTO) 25 % (12-44); MEAN CORPUSCULAR HEMOGLOBIN 32 pg (25-34); MEAN CORPUSCULAR HGB CONC 33 g/dL (32-36); MEAN CORPUSCULAR VOLUME 96 fL (80-99); MEAN PLATELET VOLUME 11.2 fL (9.0-12.2); MONOCYTES # (AUTO) 0.7 10^3/uL (0.0-1.0); MONOCYTES % (AUTO) 7 % (0-12); NEUTROPHILS # (AUTO) 6.6 10^3/uL (1.8-7.8); NEUTROPHILS % (AUTO) 67 % (42-75); PLATELET COUNT 218 10^3/uL (130-400); WHITE BLOOD COUNT 9.9 10^3/uL (4.3-11.0)
[2021-01-05] MEDS: D5 LR IV SOLUTION 1,000 ML IV SCH ×2 (07:55→16:10)
[2021-01-05] MEDS ORDERED: fentaNYL 2 mcg/ml BUPIVA 0.125 100 ML ONE (11:24)
[2021-01-05] MEDS ORDERED: BUPIVACAINE 0.25% 30 ML (SENSORCAINE) VIAL ONE ×2 (11:55→21:19)
[2021-01-05] MEDS ORDERED: fentaNYL INJ 100 MCG/2 ML AMP ONE ×2 (11:55→20:40)
[2021-01-05] MEDS: fentaNYL 2 mcg/ml BUPIVA 0.125 100 ML IV SCH ×2 (12:15→20:40)
[2021-01-05] MEDS ORDERED: LACTATED RINGERS 1,000 ML IV ONE (12:30)
[2021-01-05] MEDS ORDERED: CATHETER FLUSH 10 ML SYR IV PRN (12:30)
[2021-01-05] MEDS ORDERED: NALOXONE 0.4 MG/ML 1 ML (NARCAN) VIAL IV PRN (12:30)
[2021-01-05] MEDS ORDERED: CATHETER FLUSH 10 ML SYR IV SCH (14:00)
[2021-01-05] MEDS ORDERED: ONDANSETRON 4 MG/2 ML (SDV) Z0FRAN ONE (17:22)
[2021-01-05] MEDS ORDERED: ONDANSETRON 4 MG/2 ML (SDV) Z0FRAN IVP PRN (17:30)
[2021-01-05] MEDS ORDERED: LIDOCAINE PF 2% 5 ML (XYLOCAINE) VIAL ONE (20:19)
[2021-01-05] MEDS ORDERED: PROMETHAZINE INJ 25 MG/ML (PHENERGAN) AMP ONE (20:36)
[2021-01-05] MEDS ORDERED: PROMETHAZINE INJ 25 MG/ML (PHENERGAN) AMP IV ONE (20:40)
[2021-01-06] VITALS (14 sets, daily range): BP systolic 92–125; BP diastolic 44–71
--- NOTE | 2021-01-06 01:23 | OB Labor & Delivery Record ---
L&D History Date of Service Date of Service: Jan 06, 2021 History Expected Date of Delivery: Jan 08, 2021 Gestational Age in Weeks: 39 Hx : 3 Hx Para: 2 Complications Events: Routine care Operative Indications (Cesarea: N/A-Vaginal Delivery Intrapartal Events: None L&D Stage1 Stage One Onset of Labor - Date: Jan 06, 2021 Monitors and Tracing Monitor Mode: External Heart Rate: 145 Monitor Accelerations: Uniform Station: -1 Alf Variability: Average (6-10) Short Term Variability: Present Presentation: Vertex Vital Signs VS - Last 72 Hours, by Label 01/05/21 01/05/21 01/05/21 01/05/21 07:56 08:30 09:00 09:14 Temp 36.2 Pulse 77 75 90 88 Resp 18 18 18 18 B/P (MAP) 101/57 (72) 109/60 (76) 105/64 (78) 94/52 (66) Pulse Ox 98 O2 Delivery Room Air Room Air Room Air Room Air 01/05/21 01/05/21 01/05/21 01/05/21 09:30 09:46 10:00 10:15 Temp 36.2 Pulse 72 76 82 73 Resp 18 18 18 18 B/P (MAP) 106/55 (72) 107/59 (75) 105/52 (69) 109/58 (75) O2 Delivery Room Air Room Air Room Air Room Air 01/05/21 01/05/21 01/05/21 01/05/21 10:30 10:43 10:46 11:00 Temp 36.3 Pulse 81 71 83 Resp 18 18 18 B/P (MAP) 110/58 (75) 116/64 (81) 115/62 (79) O2 Delivery Room Air Room Air Room Air 01/05/21 01/05/21 01/05/21 01/05/21 11:15 11:28 11:30 11:45 Temp 36.0 Pulse 80 89 80 Resp 18 18 18 B/P (MAP) 111/57 (75) 100/54 (69) 106/57 (73) O2 Delivery Room Air Room Air Room Air 01/05/21 01/05/21 01/05/21 01/05/21 12:02 12:03 12:06 12:09 Pulse 77 86 76 82 Resp 18 18 18 18 B/P (MAP) 106/55 (72) 105/60 (75) 100/67 (78) 102/55 (71) Pulse Ox 100 100 O2 Delivery Room Air Room Air Room Air Room Air 01/05/21 01/05/21 01/05/21 01/05/21 12:12 12:15 12:18 12:21 Pulse 75 80 75 81 Resp 18 18 18 18 B/P (MAP) 106/59 (75) 103/56 (72) 98/56 (70) 99/55 (70) Pulse Ox 100 100 99 O2 Delivery Room Air Room Air Room Air Room Air 01/05/21 01/05/21 01/05/21 01/05/21 12:24 12:27 12:30 12:33 Pulse 81 90 70 78 Resp 18 18 18 18 B/P (MAP) 99/58 (72) 99/58 (72) 99/55 (70) 87/51 (63) Pulse Ox 99 99 O2 Delivery Room Air Room Air Room Air Room Air 01/05/21 01/05/21 01/05/21 01/05/21 12:34 12:40 12:45 12:50 Pulse 87 95 83 74 Resp 18 18 18 18 B/P (MAP) 92/55 (67) 95/56 (69) 100/57 (71) 107/55 (72) Pulse Ox 98 97 O2 Delivery Room Air Room Air Room Air Room Air 01/05/21 01/05/21 01/05/21 01/05/21 12:55 13:00 13:05 13:10 Temp 36.2 Pulse 80 86 69 Resp 18 18 18 B/P (MAP) 104/57 (73) 100/59 (73) 101/51 (68) Pulse Ox 98 96 O2 Delivery Room Air Room Air Room Air 01/05/21 01/05/21 01/05/21 01/05/21 13:15 13:20 13:38 13:51 Pulse 72 66 72 76 Resp 18 18 18 18 B/P (MAP) 85/43 (57) 90/44 (59) 82/42 (55) 79/43 (55) Pulse Ox 98 98 98 O2 Delivery Room Air Room Air Room Air Room Air 01/05/21 01/05/21 01/05/21 01/05/21 14:07 14:21 14:37 14:52 Pulse 79 69 76 74 Resp 18 18 18 18 B/P (MAP) 76/40 (52) 73/41 (52) 90/54 (66) 80/43 (55) Pulse Ox 98 98 97 97 O2 Delivery Room Air Room Air Room Air Room Air 01/05/21 01/05/21 01/05/21 01/05/21 15:06 15:21 15:37 15:51 Temp 36.4 Pulse 72 85 80 85 Resp 18 18 18 18 B/P (MAP) 86/47 (60) 90/55 (67) 115/58 (77) 104/57 (73) Pulse Ox 97 98 98 99 O2 Delivery Room Air Room Air Room Air Room Air 01/05/21 01/05/21 01/05/21 01/05/21 16:06 16:21 16:37 16:51 Pulse 83 87 88 87 Resp 18 18 18 18 B/P (MAP) 108/58 (75) 108/63 (78) 109/59 (76) 104/56 (72) Pulse Ox 99 100 99 98 O2 Delivery Room Air Room Air Room Air Room Air 01/05/21 01/05/21 01/05/21 01/05/21 17:07 17:24 17:37 17:41 Temp 35.8 Pulse 88 93 89 83 Resp 18 18 18 18 B/P (MAP) 108/58 (75) 106/64 (78) 117/70 (86) 110/67 (81) Pulse Ox 98 97 98 97 O2 Delivery Room Air Room Air Room Air Room Air 01/05/21 01/05/21 01/05/21 01/05/21 17:50 18:00 18:05 18:20 Pulse 79 87 83 86 Resp 18 18 18 18 B/P (MAP) 109/63 (78) 115/68 (84) 101/57 (72) 107/59 (75) Pulse Ox 99 99 99 O2 Delivery Room Air Room Air Room Air Room Air 01/05/21 01/05/21 01/05/21 18:30 18:39 18:51 Pulse 88 82 80 Resp 18 18 18 B/P (MAP) 108/59 (75) 105/55 (72) 99/60 (73) Pulse Ox 99 98 99 O2 Delivery Room Air Room Air Room Air Rupture of Membranes Spontaneous Ruture of Membrane: No Amniotic Membrane Rupture Time: 0821 Amniotic Membrane Fluid Desc.: Clear Vaginal Bleeding Description: Normal Show Induction/Anesthesia Epidural Cath Placement - Time: 1206 Progress/Notes Patient admitted for elective IOL. AROM and pitocin augmentation used, patient received epidural. She progressed to 8-9 cm, where her epidural had to be redone due to loss of pain control. She also was given 12.5 mg phenergan IV to control cervical swelling. She then progressed to complete and + 2 station. L&D Stage2 Stage Two Stage II Date: Jan 06, 2021 Monitors and Tracing Monitor Mode: External Heart Rate: 145 Monitor Accelerations: Uniform Monitor Decelerations: None Alf Variability: Average (6-10) Short Term Variability: Present Position: Right Occiput Anterior Presentation: Vertex Cord Descript/Complications Cord Vessel Description: 3 Vessels Delivery Type Infant Delivery Method: Spontaneous Vaginal Anterior Shoulder: Left Episiotomy/Perineal Laceration Laceraction(s)/Extensions: No Condition of Infant Delivery 1 minute Comment: 8 5 minute Comment: 9 Notes Live female infant weight pending, to mother's chest Condition of Infant Condition of Infant: Living Exam: No Observed Abnormalities Resuscitation Resuscitation: N/A - Spontaneous Resp L&D Stage3 Stage Three Stage III Date: Jan 06, 2021 Pictocin Pitocin Administration mu/min: 14 Pitocin ml/hr: 14 Pitocin Administration Comment: 30 mu wide open after delivery of placetna Placenta Delivery Placenta Delivery: Spontaneous Delivery Summary Summary Estimated blood loss (mL): 250 Attending at delivery: Jose Sol DO Condition of Delivery Examined: Cervix Examined, Uterus Explored Post Hemorrhage: No Condition of Mother stable Condition of Infant (s) stable JOSE SOL DO Jan 06, 2021 01:23
--- NOTE | 2021-01-06 01:23 | Discharge Inst-Women's Service ---
Discharge Inst-Women's Serv Depart Medication/Instructions New, Converted or Re-Newed RX: RX on Chart Final Diagnosis PPD 1 NVD Problems Reviewed?: Yes Consults/Follow Up Additional Follow Up: Yes Orders/Referrals Dr. Sol in 6 weeks Activity Activity: Activity as Tolerated Driving Instructions: No Driving for 1 Week NO SMOKING: NO SMOKING Nothing Inside Vagina: No Douching, No [place], No Tampons Diet Discharge Diet: No Restrictions Symptoms to Report to : Bleeding Excessive, Pain Increased, Fever Over 101 Degrees F, Vaginal Bleeding Increase, Questions/Concerns For Any Problems or Questions: Contact Your Physician JOSE SOL DO Jan 06, 2021 01:23
[2021-01-06] MEDS ORDERED: FERR325T24 PO (01:25)
[2021-01-06] MEDS ORDERED: BENZ78AE5 TP (01:25)
[2021-01-06] MEDS ORDERED: ACHD5005 PO (01:25)
[2021-01-06] MEDS ORDERED: DOCU100C37 PO (01:25)
[2021-01-06] MEDS ORDERED: IBUP-844 PO (01:25)
[2021-01-06] MEDS ORDERED: HYDROcodone/APAP 5 MG/325 MG (LORTAB) TAB PO PRN (01:30)
[2021-01-06] MEDS ORDERED: WITCH HAZEL(TUCKS) 40 EA JAR TOP PRN (01:30)
[2021-01-06] MEDS ORDERED: NALOXONE 0.4 MG/ML 1 ML (NARCAN) VIAL IV PRN (01:30)
[2021-01-06] MEDS ORDERED: MEASLES,MUMPS,RUBELLA 1 EA INJ SQ ONE (01:30)
[2021-01-06] MEDS ORDERED: TETANUS,DIPTH,PERTUSS P/F (BOOSTRIX) 0.5 ML VIAL IM ONE (01:30)
[2021-01-06] MEDS ORDERED: DIBUCAINE 1% OINTMENT 30 GM TUBE TOP PRN (01:30)
[2021-01-06] MEDS ORDERED: BENZOCAINE/MENTHOL (DERMOPLAST) 56 ML CAN TP PRN (01:30)
[2021-01-06] MEDS: OXYTOCIN PRE-MIX DRIP 500 ML IV SCH ×2 (01:34→15:04)
[2021-01-06] MEDS ORDERED: IBUPROFEN 600 MG (MOTRIN) TAB PO ONE (02:51)
[2021-01-06] MEDS: IBUPROFEN 600 MG (MOTRIN) TAB PO SCH ×4 (03:04→21:15)
[2021-01-06] MEDS ORDERED: CATHETER FLUSH 10 ML SYR IV SCH (06:00)
[2021-01-06] MEDS: FERROUS SULF 325 MG (IRON) TAB PO SCH (08:48)
[2021-01-06] MEDS: PRENATAL VITAMIN 1 EA TAB PO SCH (08:48)
[2021-01-06] MEDS: DOCUSATE SODIUM 100 MG (COLACE) CAP PO SCH ×2 (08:49→21:15)
--- NOTE | 2021-01-06 14:31 | Anesthesia-Regional Post-Op ---
Regional Patient Condition Mental Status: Alert, Oriented x3 Circulation: Same as Pre-Op Headache: Absent Sensation: Full Recovery Motor Block: Absent Post Op Complications Complications None Follow Up Care/Instructions Patient Instructions None needed. Anesthesia/Patient Condition Patient is doing well, no complaints, stable vital signs, no apparent adverse anesthesia problems. KAY ANG DO Jan 06, 2021 14:31
[2021-01-07 02:30] VITALS: BP 96/55
[2021-01-07] MEDS: IBUPROFEN 600 MG (MOTRIN) TAB PO SCH ×2 (02:30→08:36)
[2021-01-07 06:51] LABS: BASOPHILS # (AUTO) 0.1 10^3/uL (0.0-0.1); BASOPHILS % (AUTO) 1 % (0-10); EOSINOPHILS # (AUTO) 0.2 10^3/uL (0.0-0.3); EOSINOPHILS % (AUTO) 1 % (0-10); HEMATOCRIT 34 % (35-52); LYMPHOCYTES # (AUTO) 3.3 10^3/uL (1.0-4.0); LYMPHOCYTES % (AUTO) 22 % (12-44); MEAN CORPUSCULAR HEMOGLOBIN 32 pg (25-34); MEAN CORPUSCULAR HGB CONC 33 g/dL (32-36); MEAN CORPUSCULAR VOLUME 98 fL (80-99); MEAN PLATELET VOLUME 11.4 fL (9.0-12.2); MONOCYTES % (AUTO) 6 % (0-12); NEUTROPHILS # (AUTO) 10.6 10^3/uL (1.8-7.8); NEUTROPHILS % (AUTO) 70 % (42-75); PLATELET COUNT 192 10^3/uL (130-400); WHITE BLOOD COUNT 15.2 10^3/uL (4.3-11.0)
[2021-01-07] MEDS: PRENATAL VITAMIN 1 EA TAB PO SCH (08:36)
[2021-01-07] MEDS: DOCUSATE SODIUM 100 MG (COLACE) CAP PO SCH (08:36)
[2021-01-07] MEDS: FERROUS SULF 325 MG (IRON) TAB PO SCH (08:36)
[2021-01-07 08:38] VITALS: BP 100/55
--- NOTE | 2021-01-07 08:42 | Postpartum Progress Note ---
Note Note Day # 1 Subjective: Patient is without complaints. Ambulating, voiding. Tolerating a regular diet without nausea or vomiting. Normal lochia. Pain is well controlled with oral pain medications. Objective: Physical Exam: General - Alert and oriented, no apparent distress Abdomen - Soft, appropriately tender to palpation, non-distended, fundus firm at umbilicus Extremities - no edema, negative Feliciano's bilaterally Assessment: PPD 1 NVD Acute blood loss anemia Plan: Routine care. Encourage breast feeding. Encourage ambulation. Ferrous sulfate supplementation. Plan for discharge today Vitals - Labs Vital Signs - I&O Vital Signs Date Time Temp Pulse Resp B/P (MAP) Pulse Ox O2 Delivery O2 Flow Rate FiO2 01/07/21 02:30 36.1 72 18 96/55 (69) 98 Room Air 01/06/21 21:15 36.1 82 18 125/58 (80) 98 Room Air 01/06/21 16:35 36.3 80 18 119/64 (82) 98 Room Air 01/06/21 12:05 36.6 91 18 92/44 (60) 96 Room Air 01/06/21 08:51 36.6 57 18 95/51 (66) 96 Room Air Labs Laboratory Tests 01/07/21 06:24: White Blood Count 15.2H, Red Blood Count 3.46L, Hemoglobin 11.0L, Hematocrit 34L , Mean Corpuscular Volume 98, Mean Corpuscular Hemoglobin 32, Mean Corpuscular Hemoglobin Concent 33, Red Cell Distribution Width 13.2, Platelet Count 192, Mean Platelet Volume 11.4, Immature Granulocyte % (Auto) 1, Neutrophils (%) (Auto) 70, Lymphocytes (%) (Auto) 22, Monocytes (%) (Auto) 6, Eosinophils (%) (Auto) 1, Basophils (%) (Auto) 1, Neutrophils # (Auto) 10.6H, Lymphocytes # (Auto) 3.3, Monocytes # (Auto) 1.0, Eosinophils # (Auto) 0.2, Basophils # (Auto) 0.1, Immature Granulocyte # (Auto) 0.1 JOSE SOL DO Jan 07, 2021 8:42 am
== END 2021-01-07 13:11 | disposition home or self-care (01) | DRG 806 ==
LOC: LDRP 06:33
PROVIDERS: ADMIT Obstetrics & Gynecology; ATTEND Obstetrics & Gynecology
PROC: 10907ZC Drainage of Amniotic Fluid, Therapeutic from Products of Conception, Via Natural or Artificial Opening (ICD-10-PCS; 2021-01-05)
PROC: 10E0XZZ Delivery of Products of Conception, External Approach (ICD-10-PCS; principal; 2021-01-06)
DX: O90.81 Anemia of the puerperium (principal); D62 Acute posthemorrhagic anemia; Z37.0 Single live birth; Z3A.39 39 weeks gestation of pregnancy
CPT/HCPCS: 36415; 85025; 86850; 86900; 86901